=== PATIENT | female | born 1940 | race Caucasian/White ===

== ENCOUNTER → 2017-06-13 | Outpatient (CLI) | payer MEDICARE, BC ==
[~2017-06-13] MED LIST: ASPI-630 PO; CARV12.52 PO; GADOBUTROL 7.5 MMOL/7.5 ML VIAL IV ONE; LOSA100T6 PO; METF500T4 PO; PRAV40TA2 PO; SITA100T PO
--- NOTE | 2017-06-13 11:03 | KCIC ---
MRI Brain with and without contrast History: Disorders of speech and language, progressing expressive aphasia Technique: Multiplanar, multi sequential pre and postcontrast MR imaging was performed of the brain. Contrast: 7 cc Gadavist Comparison: July 23, 2016 Findings: There is no evidence of recent infarct or cytotoxic edema. Ventricular size is stable. There is again mild generalized supratentorial involutional change. There is no significant hemosiderin deposition of the brain parenchyma. There is no significant midline shift, intraaxial mass effect, or focal abnormal extra-axial fluid collection. No new convincing focal signal abnormality is identified of the brain parenchyma, focus of increased FLAIR signal the right sonny believed to be artifactual as not confirmed on T2 sequence. There is no nodular parenchymal or leptomeningeal enhancement. There is preservation of the major intracranial flow-voids at the skull base. The cerebellar tonsils are normal in location. There is no significant abnormality of the pineal gland or pituitary gland. There has been lens surgery bilaterally. There is likely mucus retention cyst left maxillary sinus 1 cm in size. There is patchy very mild ethmoid air cell mucosal thickening. There is again minimal fluid of the right mastoid air cells. Paranasal sinuses are overall aerated. There is preserved marrow signal of the clivus. Impression: 1. There is no new significant intracranial abnormality. There is again mild generalized supratentorial involutional change. Electronically signed by: Tushar Miller MD (06/13/2017 10:59 AM) [facility]
== END | disposition home or self-care (01) ==
LOC: KCIC MRI 08:04
PROVIDERS: ATTEND Psychiatry & Neurology Neurology
DX: R47.01 Aphasia (principal)
CPT/HCPCS: 70553; 82565; A9585

== ENCOUNTER 2019-04-01 11:03 | Emergency (ER) | payer MEDICARE, BC ==
[~2019-04-01] VITALS: Ht 162.6 cm; Wt 90.7 kg
[2019-04-01 11:03] VITALS: BP 161/58
[~2019-04-01 11:03] MED LIST changes: +CARV12.511 PO; -CARV12.52 PO; -GADOBUTROL 7.5 MMOL/7.5 ML VIAL IV ONE; +LOSA100T14 PO; -LOSA100T6 PO; +METF500T16 PO; -METF500T4 PO
[2019-04-01 11:28] LABS: BILIRUBIN,URINE NEGATIVE (NEG); CLARITY,URINE CLEAR; COLOR,URINE YELLOW; NITRITE,URINE POSITIVE (NEG); PH,URINE 5.5; PROTEIN,URINE NEGATIVE (NEG-TRACE); UROBILINOGEN,URINE 0.2 mg/dL (0.2 mg/dL)
[2019-04-01 11:41] LABS: BACTERIA,URINE MANY /HPF (0-FEW)
--- NOTE | 2019-04-01 11:53 | RAD ---
Examination: 2 views of the right hip with frontal view the pelvis, 3 views of the right knee and frontal view of the chest HISTORY: History of fall COMPARISON: None available. FINDINGS: CHEST: The cardiomediastinal silhouette grossly appears unremarkable. There is no acute infiltrate or visualized pneumothorax. Right knee: Severe joint space loss identified in the medial, lateral, patellofemoral compartments with moderate size osteophyte formation likely severe tricompartmental degenerative changes. There is no acute fracture or dislocation identified. Right hip: The right femoral head is within the acetabulum. There is no acute fracture or dislocation identified. IMPRESSION: 1. No acute osseous findings. 2. No acute cardiopulmonary findings. Electronically signed by: Devonte Medrano MD (04/01/2019 11:50 AM) [facility]
[2019-04-01] MEDS ORDERED: CEPH-264 PO (12:19)
--- NOTE | 2019-04-01 12:19 | PHYS DOC ---
Past Medical History Past Medical History: Diabetes-Type II, Hypertension, Other Additional Past Medical Histor: primary progressive aphasia Past Surgical History: Hysterectomy Alcohol Use: None Drug Use: None Adult General Chief Complaint Chief Complaint: MECHANICAL FALL HPI HPI Patient is a 78 year old female with history of expressive aphasia who brought in by EMS because of a fall and injury to lower extremity. Patient lives at home by herself and usually uses a walker care for ambulation. Patient had an unwitnessed fall and complaining of right lower extremity pain. Patient denies head injury and loss of consciousness Review of Systems Review of Systems Constitutional: Denies fever or chills [] Eyes: Denies change in visual acuity, redness, or eye pain [] HENT: Denies nasal congestion or sore throat [] Respiratory: Denies cough or shortness of breath [] Cardiovascular: No additional information not addressed in HPI [] GI: Denies abdominal pain, nausea, vomiting, bloody stools or diarrhea [] : Denies dysuria or hematuria [] Musculoskeletal: Denies back pain, reports joint pain [] Integument: Denies rash or skin lesions [] Neurologic: Denies headache, focal weakness or sensory changes [] Endocrine: Denies polyuria or polydipsia [] All other systems were reviewed and found to be within normal limits, except as documented in this note. Allergies Allergies Allergies Coded Allergies Type Severity Reaction Last Updated Verified No Known Drug Allergies 04/09/15 No Physical Exam Physical Exam Constitutional: Well nourished, mild distress, non-toxic appearance.stuttering speech [] HENT: Normocephalic, atraumatic. Eyes: PERRLA, EOMI, conjunctiva normal, no discharge. [] Neck: Normal range of motion, no tenderness, supple, no stridor. [] Cardiovascular:Heart rate regular rhythm, no murmur [] Lungs & Thorax: Bilateral breath sounds clear to auscultation [] Abdomen: Bowel sounds normal, soft, no tenderness, no masses, no pulsatile masses. [] Skin: Warm, dry, no erythema, no rash. [] Back: No tenderness, no CVA tenderness. [] Extremities: No tenderness, no cyanosis, no clubbing, ROM intact, no edema. [] Neurologic: Alert and oriented X 2, normal motor function, normal sensory function, no focal deficits noted. [] Current Patient Data Vital Signs Vital Signs Date Time Temp Pulse Resp B/P (MAP) Pulse Ox O2 Delivery O2 Flow Rate FiO2 04/01/19 11:03 98.2 64 17 161/58 (92) 95 Room Air 98.2 Lab Values Laboratory Tests Test 04/01/19 11:20 Urine Collection Type Unknown Urine Color Yellow Urine Clarity Clear Urine pH 5.5 Urine Specific [place] 1.020 Urine Protein Negative mg/dL (NEG-TRACE) Urine Glucose (UA) Negative mg/dL (NEG) Urine Ketones (Stick) Trace mg/dL (NEG) Urine Blood Small (NEG) Urine Nitrite Positive (NEG) Urine Bilirubin Negative (NEG) Urine Urobilinogen Dipstick 0.2 mg/dL (0.2 mg/dL) Urine Leukocyte Esterase Moderate (NEG) Urine RBC 3-5 /HPF (0-2) Urine WBC 11-20 /HPF (0-4) Urine Bacteria Many /HPF (0-FEW) EKG EKG [] Radiology/Procedures Radiology/Procedures [][facility] [address] [place], [place] [id number] IMAGING REPORT Signed PATIENT: VICK GROSS ACCOUNT: [id number] : 1940 LOCATION: ER AGE: 78 SEX: F EXAM STATUS: REG ER ORD. PHYSICIAN: JAYASHREE STEPHENSON MD REASON: fall PROCEDURE: PORTABLE CHEST 1V Examination: 2 views of the right hip with frontal view the pelvis, 3 views of the right knee and frontal view of the chest HISTORY: History of fall COMPARISON: None available. FINDINGS: CHEST: The cardiomediastinal silhouette grossly appears unremarkable. There is no acute infiltrate or visualized pneumothorax. Right knee: Severe joint space loss identified in the medial, lateral, patellofemoral compartments with moderate size osteophyte formation likely severe tricompartmental degenerative changes. There is no acute fracture or dislocation identified. Right hip: The right femoral head is within the acetabulum. There is no acute fracture or dislocation identified. IMPRESSION: 1. No acute osseous findings. 2. No acute cardiopulmonary findings. Electronically signed by: Devonte Medrano MD (04/01/2019 11:50 AM) [facility] DICTATED and SIGNED BY: DEVONTE MEDRANO MD DATE: 04/01/19 1150 Course & Med Decision Making Course & Med Decision Making Pertinent Labs and Imaging studies reviewed. (See chart for details) Evaluation of patient in ER showed 78-year-old male patient with a fall at home and lower extremity with unremarkable physical exam and x-ray. Patient had the smell of urine and UA showed UTI without hypotension, confusion, fever or tachycardia. Patient ambulated without problem. Patient's mother was advised regarding prevention of fall and possible change of living from by herself with somebody else. Dragon Disclaimer Dragon Disclaimer This electronic medical record was generated, in whole or in part, using a voice recognition dictation system. Departure Departure Impression: Primary Impression: Fall at home Additional Impressions: Contusion of right knee Urinary tract infection Disposition: HOME, SELF-CARE (at 2017) Condition: IMPROVED Referrals: DARA JANE MD (PCP) Patient Instructions: Contusion, Fall Prevention and Home Safety, Urinary Tract Infection Additional Instructions: Drink plenty of liquids Follow-up with your primary care physician in 3-5 days Return to ER if not getting better Apply ice on the affected area Scripts Cephalexin (KEFLEX) 500 Mg Capsule 2 CAP PO Q12HR, #28 CAP Prov: JAYASHREE STEPHENSON MD 04/01/19 Problem Qualifiers Primary Impression: Fall at home Encounter type: initial encounter Qualified Codes: W19.XXXA - Unspecified fall, initial encounter; Y92.009 - Unspecified place in unspecified non- institutional (private) residence as the place of occurrence of the external cause Additional Impressions: Contusion of right knee Encounter type: subsequent encounter Qualified Codes: S80.01XD - Contusion of right knee, subsequent encounter Urinary tract infection Urinary tract infection type: site unspecified Hematuria presence: without hematuria Qualified Codes: N39.0 - Urinary tract infection, site not specified JAYASHREE STEPHENSON MD Apr 01, 2019 12:19
--- NOTE | 2019-04-01 13:04 | NUR ---
AMBULATED WITH A STEADY GATE. STRUGGLED TO PUT WEIGHT ON RIGHT KNEE.
== END 2019-04-01 13:05 | disposition home or self-care (01) ==
LOC: ER 11:03
DX: S80.01XA Contusion of right knee, initial encounter (principal); N39.0 Urinary tract infection, site not specified; M25.551 Pain in right hip; I10 Essential (primary) hypertension; E11.9 Type 2 diabetes mellitus without complications; Z90.710 Acquired absence of both cervix and uterus; W18.39XA Other fall on same level, initial encounter; Y93.89 Activity, other specified; Y92.098 Other place in other non-institutional residence as the place of occurrence of the external cause; Y99.8 Other external cause status
CPT/HCPCS: 71045; 73502; 73562; 81001; 87086; 99285; P9612

== ENCOUNTER 2019-04-28 12:34 | Inpatient (IN) | payer MEDICARE, BC ==
[~2019-04-28] VITALS: Ht 152.4 cm; Wt 69.9 kg
[~2019-04-28 12:34] MED LIST changes: +CEPH-264 PO
[2019-04-28] MEDS ORDERED: IV NORMAL SALINE 1000ML BAG 1,000 ML IV ONE ×2 (13:00→14:15)
--- NOTE | 2019-04-28 13:22 | PHYS DOC ---
Past Medical History Past Medical History: Diabetes-Type II, Hypertension, Other Additional Past Medical Histor: primary progressive aphasia, [place], CARDIAC STENTS Past Surgical History: Hysterectomy Alcohol Use: None Drug Use: None Adult General Chief Complaint Chief Complaint: MECHANICAL FALL HPI HPI Patient is a 78 year old female with history of diabetes type 2, hypertension, aphasia, [place], who presents to the ED today to be evaluated for multiple falls and UTIs. Patient is in the ED with this daughter who is doing the speaking. She states she has been found on the floor at home twice in the last 2 days, patient resides at home by herself. Daughter also states patient appears slightly co nfused and believes patient could have a UTI. She states the last time patient had a UTI she was on Cipro which she completed a couple days ago. Patient denies any complaints. She appears alert and oriented �2, daughter states she was complaining of right knee pain but she arrives in the ED and ambulated from the wheelchair to the bed. Review of Systems Review of Systems Constitutional: Denies fever or chills [] Eyes: Denies change in visual acuity, redness, or eye pain [] HENT: Denies nasal congestion or sore throat [] Respiratory: Denies cough or shortness of breath [] Cardiovascular: No additional information not addressed in HPI [] GI: Denies abdominal pain, nausea, vomiting, bloody stools or diarrhea [] : Reports possible UTI, denies hematuria [] Musculoskeletal: Denies back pain or joint pain [] Integument: Denies rash or skin lesions [] Neurologic: Reports confusion. He is right knee pain. Denies headache, focal weakness or sensory changes [] All other systems were reviewed and found to be within normal limits, except as documented in this note. Current Medications Current Medications Current Medications Medications (Trade) Dose Ordered Sig/Fredo Start Time Stop Time Status Last Admin Dose Admin Sodium Chloride 1,000 ml @ 1,000 mls/hr 1X ONCE 04/28/19 13:00 04/28/19 13:59 DC 04/28/19 13:50 1,000 MLS/HR Allergies Allergies Allergies Coded Allergies Type Severity Reaction Last Updated Verified No Known Drug Allergies 04/09/15 No Physical Exam Physical Exam Constitutional: Well developed, well nourished, no acute distress, non-toxic appearance. [] HENT: Normocephalic, atraumatic, bilateral external ears normal, oropharynx moist, no oral exudates, nose normal. [] Eyes: PERRLA, EOMI, conjunctiva normal, no discharge. [] Neck: Normal range of motion, no tenderness, supple, no stridor. [] Cardiovascular:Heart rate regular rhythm, no murmur [] Lungs & Thorax: Bilateral breath sounds clear to auscultation [] Abdomen: Bowel sounds normal, soft, no tenderness, no masses, no pulsatile masses. [] Skin: Warm, dry, no erythema, no rash. [] Back: No tenderness, no CVA tenderness. [] Extremities: No tenderness, no cyanosis, no clubbing, ROM intact, no edema. [] Neurologic: Alert and oriented X 2, normal motor function, normal sensory function, no focal deficits noted. Cranial nerves II through XII intact. Psychologic: Affect normal, judgement normal, mood normal. [] Current Patient Data Vital Signs Vital Signs Date Time Temp Pulse Resp B/P (MAP) Pulse Ox O2 Delivery O2 Flow Rate FiO2 04/28/19 12:52 97.6 58 16 142/60 (87) 94 Room Air 97.6 Lab Values Laboratory Tests Test 04/28/19 13:07 04/28/19 13:24 Urine Collection Type U cath Urine Color Yellow Urine Clarity Clear Urine pH 5.5 Urine Specific [place] 1.015 Urine Protein Negative mg/dL (NEG-TRACE) Urine Glucose (UA) Negative mg/dL (NEG) Urine Ketones (Stick) Trace mg/dL (NEG) Urine Blood Negative (NEG) Urine Nitrite Negative (NEG) Urine Bilirubin Negative (NEG) Urine Urobilinogen Dipstick 0.2 mg/dL (0.2 mg/dL) Urine Leukocyte Esterase Negative (NEG) Urine RBC 0 /HPF (0-2) Urine WBC 0 /HPF (0-4) Urine Bacteria 0 /HPF (0-FEW) White Blood Count 7.6 x10^3/uL (4.0-11.0) Red Blood Count 4.06 x10^6/uL (3.50-5.40) Hemoglobin 12.1 g/dL (12.0-15.5) Hematocrit 35.2 % (36.0-47.0) L Mean Corpuscular Volume 87 fL (79-100) Mean Corpuscular Hemoglobin 30 pg (25-35) Mean Corpuscular Hemoglobin Concent 34 g/dL (31-37) Red Cell Distribution Width 14.1 % (11.5-14.5) Platelet Count 241 x10^3/uL (140-400) Neutrophils (%) (Auto) 63 % (31-73) Lymphocytes (%) (Auto) 27 % (24-48) Monocytes (%) (Auto) 8 % (0-9) Eosinophils (%) (Auto) 2 % (0-3) Basophils (%) (Auto) 1 % (0-3) Neutrophils # (Auto) 4.8 x10^3/uL (1.8-7.7) Lymphocytes # (Auto) 2.0 x10^3/uL (1.0-4.8) Monocytes # (Auto) 0.6 x10^3/uL (0.0-1.1) Eosinophils # (Auto) 0.1 x10^3/uL (0.0-0.7) Basophils # (Auto) 0.1 x10^3/uL (0.0-0.2) Sodium Level 141 mmol/L (136-145) Potassium Level 3.9 mmol/L (3.5-5.1) Chloride Level 105 mmol/L (98-107) Carbon Dioxide Level 25 mmol/L (21-32) Anion Gap 11 (6-14) Blood Urea Nitrogen 17 mg/dL (7-20) Creatinine 0.9 mg/dL (0.6-1.0) Estimated GFR (Cockcroft-Gault) 60.2 BUN/Creatinine Ratio 19 (6-20) Glucose Level 111 mg/dL (70-99) H Calcium Level 9.1 mg/dL (8.5-10.1) Magnesium Level 1.5 mg/dL (1.8-2.4) L Total Bilirubin 1.1 mg/dL (0.2-1.0) H Aspartate Amino Transferase (AST) 15 U/L (15-37) Alanine Aminotransferase (ALT) 16 U/L (14-59) Alkaline Phosphatase 49 U/L (46-116) Troponin I Quantitative < 0.017 ng/mL (0.000-0.055) Total Protein 6.7 g/dL (6.4-8.2) Albumin 3.8 g/dL (3.4-5.0) Albumin/Globulin Ratio 1.3 (1.0-1.7) Laboratory Tests 04/28/19 13:24 Laboratory Tests 04/28/19 13:24 EKG EKG [address] Mendoza sinus rhythm HR 55 no STEMI Radiology/Procedures Radiology/Procedures []PROCEDURE: PORTABLE CHEST 1V PORTABLE CHEST 1V Clinical Indication: Fall Comparison: AP chest April 01, 2019. Findings: Atherosclerotic aortic arch. The cardiomediastinal silhouette is normal. Lungs are clear. There is no pneumothorax. No pleural effusion is appreciated. No acute bone abnormality. Degenerative endplate spurring of the thoracic spine. IMPRESSION: No acute cardiopulmonary process. Electronically signed by: Raymundo Suazo MD (04/28/2019 1:48 PM) [facility] DICTATED and SIGNED BY: RAYMUNDO SUAZO MD DATE: 04/28/19 5198 PROCEDURE: CT HEAD WO CONTRAST PQRS Compliance Statement: One or more of the following individualized dose reduction techniques were utilized for this examination: 1. Automated exposure control 2. Adjustment of the mA and/or kV according to patient size 3. Use of iterative reconstruction technique CT HEAD WITHOUT CONTRAST History: Altered mental status, fall. Comparison: MR brain with and without contrast June 13, 2017. Technique: Axial images are obtained of the head from the skull base through the vertex without IV contrast. Findings: No mass-effect, midline shift, extra-axial fluid collection, hemorrhage, or obvious acute infarction is identified. Basilar cisterns are patent. The ventricles and sulci are prominent, consistent with age-related cerebral atrophy. There is supratentorial white matter hypoattenuation. This is a nonspecific finding but is commonly due to chronic small vessel ischemic disease. Bone windows demonstrate no acute calvarial abnormality. The visualized paranasal sinuses are clear. Mastoid air cells are well aerated. IMPRESSION: No acute intracranial abnormality. Electronically signed by: Raymundo Suazo MD (04/28/2019 1:38 PM) [facility] DICTATED and SIGNED BY: RAYMUNDO SUAZO MD DATE: 04/28/19 1337 PROCEDURE: KNEE RIGHT 3V KNEE RIGHT 3V Clinical Indication: Fall Comparison: Right knee, 3 views, April 01, 2019. Findings: Tricompartmental marginal osteophytes. There is joint space narrowing, most advanced in the lateral compartment. The mineralization is normal. No acute fracture. Patella in anatomic position. There is no joint effusion. No soft tissue swelling is seen. IMPRESSION: No acute fracture. Electronically signed by: Raymundo Suazo MD (04/28/2019 1:54 PM) [facility] DICTATED and SIGNED BY: RAYMUNDO SUAZO MD DATE: 04/28/19 1354 Course & Med Decision Making Course & Med Decision Making Pertinent Labs and Imaging studies reviewed. (See chart for details) This is a 6-year-old female patient being brought to the ED today by the daughter with complaints of frequent falls, right knee pain, confusion and possible UTI. Patient was treated for UTI couple days ago with Cipro which she completed. CT of the head, chest x-ray, right knee x-rays interpreted by radiologist are negative for any acute findings. Urine analysis is negative for infection, CBC with a normal WBC, normal hemoglobin and hematocrit, CMP with magnesium of 1.5- Ordered IV magnesium, bilirubin 1.1. Urine was noted for trace amount of ketones. Patient was started on IV fluids. [address] Bolden who accepted patient for admission. Dragon Disclaimer Dragon Disclaimer This electronic medical record was generated, in whole or in part, using a voice recognition dictation system. Departure Departure Impression: Primary Impression: Altered mental status Additional Impressions: Frequent falls Right knee pain Disposition: ADMITTED INPATIENT Condition: STABLE Referrals: DARA JANE MD (PCP) Problem Qualifiers Primary Impression: Altered mental status Altered mental status type: unspecified Qualified Codes: R41.82 - Altered mental status, unspecified Additional Impressions: Right knee pain Chronicity: acute Qualified Codes: M25.561 - Pain in right knee RICKFANNYFRANSISCO Hurtado [employer] Apr 28, 2019 13:21
[2019-04-28 13:27] LABS: BILIRUBIN,URINE NEGATIVE (NEG); CLARITY,URINE CLEAR; COLOR,URINE YELLOW; NITRITE,URINE NEGATIVE (NEG); PH,URINE 5.5; PROTEIN,URINE NEGATIVE (NEG-TRACE); UROBILINOGEN,URINE 0.2 mg/dL (0.2 mg/dL)
--- NOTE | 2019-04-28 13:41 | RAD ---
RS Compliance Statement: One or more of the following individualized dose reduction techniques were utilized for this examination: 1. Automated exposure control 2. Adjustment of the mA and/or kV according to patient size 3. Use of iterative reconstruction technique CT HEAD WITHOUT CONTRAST History: Altered mental status, fall. Comparison: MR brain with and without contrast June 13, 2017. Technique: Axial images are obtained of the head from the skull base through the vertex without IV contrast. Findings: No mass-effect, midline shift, extra-axial fluid collection, hemorrhage, or obvious acute infarction is identified. Basilar cisterns are patent. The ventricles and sulci are prominent, consistent with age-related cerebral atrophy. There is supratentorial white matter hypoattenuation. This is a nonspecific finding but is commonly due to chronic small vessel ischemic disease. Bone windows demonstrate no acute calvarial abnormality. The visualized paranasal sinuses are clear. Mastoid air cells are well aerated. IMPRESSION: No acute intracranial abnormality. Electronically signed by: Raymundo Suazo MD (04/28/2019 1:38 PM) [facility]
[2019-04-28 13:49] LABS: BASO # 0.1 x10^3/uL (0.0-0.2); BASO % 1 % (0-3); EOS # 0.1 x10^3/uL (0.0-0.7); EOS % 2 % (0-3); HEMATOCRIT 35.2 % (36.0-47.0); HEMOGLOBIN 12.1 g/dL (12.0-15.5); LYMPH % 27 % (24-48); MEAN CORPUSCULAR HEMOGLOBIN 30 pg (25-35); MEAN CORPUSCULAR HGB CONC 34 g/dL (31-37); MEAN CORPUSCULAR VOLUME 87 fL (79-100); MONO # 0.6 x10^3/uL (0.0-1.1); MONO % 8 % (0-9); NEUT # 4.8 x10^3/uL (1.8-7.7); NEUT % 63 % (31-73); PLATELET COUNT 241 x10^3/uL (140-400); RED BLOOD COUNT 4.06 x10^6/uL (3.50-5.40); RED CELL DISTRIBUTION WIDTH 14.1 % (11.5-14.5); WHITE BLOOD COUNT 7.6 x10^3/uL (4.0-11.0)
[2019-04-28 13:51] LABS: BACTERIA,URINE 0 /HPF (0-FEW); RBC,URINE 0 /HPF (0-2); WBC,URINE 0 /HPF (0-4)
--- NOTE | 2019-04-28 13:51 | RAD ---
PORTABLE CHEST 1V Clinical Indication: Fall Comparison: AP chest April 01, 2019. Findings: Atherosclerotic aortic arch. The cardiomediastinal silhouette is normal. Lungs are clear. There is no pneumothorax. No pleural effusion is appreciated. No acute bone abnormality. Degenerative endplate spurring of the thoracic spine. IMPRESSION: No acute cardiopulmonary process. Electronically signed by: Raymundo Suazo MD (04/28/2019 1:48 PM) [facility]
[2019-04-28 13:52] LABS: CALCIUM 9.1 mg/dL (8.5-10.1); CREATININE 0.9 mg/dL (0.6-1.0); GFR 60.2; POTASSIUM 3.9 mmol/L (3.5-5.1)
[2019-04-28 13:57] LABS: ALBUMIN 3.8 g/dL (3.4-5.0); ALBUMIN/GLOBULIN RATIO 1.3 (1.0-1.7); MAGNESIUM 1.5 mg/dL (1.8-2.4); TOTAL BILIRUBIN 1.1 mg/dL (0.2-1.0); TOTAL PROTEIN 6.7 g/dL (6.4-8.2)
--- NOTE | 2019-04-28 13:57 | RAD ---
KNEE RIGHT 3V Clinical Indication: Fall Comparison: Right knee, 3 views, April 01, 2019. Findings: Tricompartmental marginal osteophytes. There is joint space narrowing, most advanced in the lateral compartment. The mineralization is normal. No acute fracture. Patella in anatomic position. There is no joint effusion. No soft tissue swelling is seen. IMPRESSION: No acute fracture. Electronically signed by: Raymundo Suazo MD (04/28/2019 1:54 PM) [facility]
[2019-04-28] MEDS ORDERED: MAGNESIUM SULFATE 1GM 100 ML IV ONE (14:15)
[2019-04-28] MEDS ORDERED: ONDANSETRON PF 4 MG/2 ML VIAL. IV PRN (14:15)
[2019-04-28] MEDS ORDERED: ACETAMINOPHEN 325 MG TABLET. PO PRN (14:15)
[2019-04-28] MEDS ORDERED: DEXTROSE 50% 25 GM / 50ML DISP.SYRIN. IV PRN (15:45)
[2019-04-28] MEDS ORDERED: IV DEXTROSE 5% 250 ML BAG. IV PRN (15:45)
[2019-04-28 15:50] VITALS: BP 133/49
[2019-04-28] MEDS ORDERED: CA C1TAB62 PO (15:51)
[2019-04-28] MEDS ORDERED: CHOL10003 PO (15:51)
[2019-04-28] MEDS ORDERED: ESCI10TA2 PO (15:51)
[2019-04-28] MEDS ORDERED: CALC600T4 PO (15:51)
[2019-04-28] MEDS ORDERED: GLUC1TAB26 PO (15:51)
[2019-04-28] MEDS ORDERED: AMLO5TAB10 PO (15:51)
--- NOTE | 2019-04-28 15:54 | PDOC1 ---
History and Physical Date of Admission Date of Admission DATE: 04/28/19 TIME: 15:41 Identification/Chief Complaint Chief Complaint frequent falls Problems: (1) Frequent falls Source Source: Caregiver History of Present Illness History of Present Illness 78 year old female with history of diabetes type 2, hypertension, progressive aphasia who was brought in by daughter due to recurrent falls. patient fell last night and this AM. recently treated with rounds of abx for UTI where she was confused. now confusion has resolved. patient has primary progressive aphasia. no prior stroke. seen and dx by neurologist. patient lives alone and daughter lives an hr away. she was previously able to perform all her ADLs but now weak. patient recently completed abx a few days ago. patient has no complaints at the moment. Imaging in ED negative for fracture. CT head negative. Hospitalist called for admission and further evaluation. Past Medical History Past Medical History Primary Progressive Aphasia, DM, HTN, OA Past Surgical History Past Surgical History: No pertinent history Family History Family History reviewed and not pertinent Social History Smoke: No ALCOHOL: none Drugs: None Current Problem List Problem List Problems Medical Problems: (1) Altered mental status Status: Acute (2) Frequent falls Status: Acute (3) Right knee pain Status: Acute Current Medications Current Medications Current Medications Sodium Chloride 1,000 ml @ 1,000 mls/hr 1X ONCE IV Last administered on 04/28/19at 13:50; Start 04/28/19 at 13:00; Stop 04/28/19 at 13:59; Status DC Ondansetron HCl (Zofran) 4 mg PRN Q8HRS PRN IV NAUSEA/VOMITING; Start 04/28/19 at 14:15; Stop 04/29/19 at 14:14 Acetaminophen (Tylenol) 650 mg PRN Q4HRS PRN PO FEVER; Start 04/28/19 at 14:15; Stop 04/29/19 at 14:14 Magnesium Sulfate/ Dextrose 100 ml @ 100 mls/hr 1X ONCE IV Last administered on 04/28/19at 14:51; Start 04/28/19 at 14:15; Stop 04/28/19 at 15:14; Status DC Sodium Chloride 1,000 ml @ 75 mls/hr 1X ONCE IV ; Start 04/28/19 at 14:15; Stop 04/29/19 at 03:34 Active Scripts Active Keflex (Cephalexin) 500 Mg Capsule 2 Cap PO Q12HR Reported Aspirin 81 Mg Tab.chew 1 Tab PO DAILY Januvia (Sitagliptin Phosphate) 100 Mg Tablet 1 Tab PO DAILY Losartan Potassium 100 Mg Tablet 1 Tab PO DAILY Pravastatin Sodium 40 Mg Tablet 1 Tab PO QHS Metformin Hcl 500 Mg Tablet 1 Tab PO BID Carvedilol (Carvedilol) 12.5 Mg Tablet 1 Tab PO BID Allergies Allergies: Coded Allergies: No Known Drug Allergies (Unverified , 04/09/15) ROS Review of System CONSTITUTIONAL: No fever or chills EYES: No recent changes SKIN: No rash or itching CARDIOVASCULAR: No chest pain, syncope, palpitations, or edema RESPIRATORY: No SOB or cough GASTROINTESTINAL: No nausea, vomiting or abdominal pain NEUROLOGICAL: No headaches or weakness ENDOCRINE: No cold or heat intolerance GENITOURINARY: No urgency or frequency of urination MUSCULOSKELETAL: No back pain or joint pain LYMPHATICS: No enlarged lymph nodes PSYCHIATRIC: No anxiety or depression Physical Exam Physical Exam GENERAL: No apparent distress. Alert and oriented. HEENT: Head normocephalic, atraumatic. NECK: Supple LUNGS: Clear to auscultation. HEART: RRR, S1, S2 present, pulses intact ABDOMEN: Soft, positive bowel sounds. EXTREMITIES: No cyanosis or edema. NEUROLOGIC: Normal speech, normal tone PSYCHIATRIC: Normal affect, normal mood. SKIN: No ulceration. Vitals Vitals Vital Signs Date Time Temp Pulse Resp B/P (MAP) Pulse Ox O2 Delivery O2 Flow Rate FiO2 04/28/19 12:52 97.6 58 16 142/60 (87) 94 Room Air 97.6 Labs Labs Laboratory Tests Test 04/28/19 13:07 04/28/19 13:24 Urine Collection Type U cath Urine Color Yellow Urine Clarity Clear Urine pH 5.5 Urine Specific [place] 1.015 Urine Protein Negative mg/dL (NEG-TRACE) Urine Glucose (UA) Negative mg/dL (NEG) Urine Ketones (Stick) Trace mg/dL (NEG) Urine Blood Negative (NEG) Urine Nitrite Negative (NEG) Urine Bilirubin Negative (NEG) Urine Urobilinogen Dipstick 0.2 mg/dL (0.2 mg/dL) Urine Leukocyte Esterase Negative (NEG) Urine RBC 0 /HPF (0-2) Urine WBC 0 /HPF (0-4) Urine Bacteria 0 /HPF (0-FEW) White Blood Count 7.6 x10^3/uL (4.0-11.0) Red Blood Count 4.06 x10^6/uL (3.50-5.40) Hemoglobin 12.1 g/dL (12.0-15.5) Hematocrit 35.2 % (36.0-47.0) Mean Corpuscular Volume 87 fL (79-100) Mean Corpuscular Hemoglobin 30 pg (25-35) Mean Corpuscular Hemoglobin Concent 34 g/dL (31-37) Red Cell Distribution Width 14.1 % (11.5-14.5) Platelet Count 241 x10^3/uL (140-400) Neutrophils (%) (Auto) 63 % (31-73) Lymphocytes (%) (Auto) 27 % (24-48) Monocytes (%) (Auto) 8 % (0-9) Eosinophils (%) (Auto) 2 % (0-3) Basophils (%) (Auto) 1 % (0-3) Neutrophils # (Auto) 4.8 x10^3/uL (1.8-7.7) Lymphocytes # (Auto) 2.0 x10^3/uL (1.0-4.8) Monocytes # (Auto) 0.6 x10^3/uL (0.0-1.1) Eosinophils # (Auto) 0.1 x10^3/uL (0.0-0.7) Basophils # (Auto) 0.1 x10^3/uL (0.0-0.2) Sodium Level 141 mmol/L (136-145) Potassium Level 3.9 mmol/L (3.5-5.1) Chloride Level 105 mmol/L (98-107) Carbon Dioxide Level 25 mmol/L (21-32) Anion Gap 11 (6-14) Blood Urea Nitrogen 17 mg/dL (7-20) Creatinine 0.9 mg/dL (0.6-1.0) Estimated GFR (Cockcroft-Gault) 60.2 BUN/Creatinine Ratio 19 (6-20) Glucose Level 111 mg/dL (70-99) Calcium Level 9.1 mg/dL (8.5-10.1) Magnesium Level 1.5 mg/dL (1.8-2.4) Total Bilirubin 1.1 mg/dL (0.2-1.0) Aspartate Amino Transf (AST/SGOT) 15 U/L (15-37) Alanine Aminotransferase (ALT/SGPT) 16 U/L (14-59) Alkaline Phosphatase 49 U/L (46-116) Creatine Kinase 110 U/L (26-192) Creatine Kinase MB (Mass) 1.6 ng/mL (0.0-3.6) Creatine Kinase MB Relative Index 1.5 % (0-4) Troponin I Quantitative < 0.017 ng/mL (0.000-0.055) LU-Wuv-D-Type Natriuretic Peptide 289 pg/mL (0-449) Total Protein 6.7 g/dL (6.4-8.2) Albumin 3.8 g/dL (3.4-5.0) Albumin/Globulin Ratio 1.3 (1.0-1.7) Thyroid Stimulating Hormone (TSH) 2.494 uIU/mL (0.358-3.74) Laboratory Tests Test 04/28/19 13:07 04/28/19 13:24 Urine Collection Type U cath Urine Color Yellow Urine Clarity Clear Urine pH 5.5 Urine Specific [place] 1.015 Urine Protein Negative mg/dL (NEG-TRACE) Urine Glucose (UA) Negative mg/dL (NEG) Urine Ketones (Stick) Trace mg/dL (NEG) Urine Blood Negative (NEG) Urine Nitrite Negative (NEG) Urine Bilirubin Negative (NEG) Urine Urobilinogen Dipstick 0.2 mg/dL (0.2 mg/dL) Urine Leukocyte Esterase Negative (NEG) Urine RBC 0 /HPF (0-2) Urine WBC 0 /HPF (0-4) Urine Bacteria 0 /HPF (0-FEW) White Blood Count 7.6 x10^3/uL (4.0-11.0) Red Blood Count 4.06 x10^6/uL (3.50-5.40) Hemoglobin 12.1 g/dL (12.0-15.5) Hematocrit 35.2 % (36.0-47.0) Mean Corpuscular Volume 87 fL (79-100) Mean Corpuscular Hemoglobin 30 pg (25-35) Mean Corpuscular Hemoglobin Concent 34 g/dL (31-37) Red Cell Distribution Width 14.1 % (11.5-14.5) Platelet Count 241 x10^3/uL (140-400) Neutrophils (%) (Auto) 63 % (31-73) Lymphocytes (%) (Auto) 27 % (24-48) Monocytes (%) (Auto) 8 % (0-9) Eosinophils (%) (Auto) 2 % (0-3) Basophils (%) (Auto) 1 % (0-3) Neutrophils # (Auto) 4.8 x10^3/uL (1.8-7.7) Lymphocytes # (Auto) 2.0 x10^3/uL (1.0-4.8) Monocytes # (Auto) 0.6 x10^3/uL (0.0-1.1) Eosinophils # (Auto) 0.1 x10^3/uL (0.0-0.7) Basophils # (Auto) 0.1 x10^3/uL (0.0-0.2) Sodium Level 141 mmol/L (136-145) Potassium Level 3.9 mmol/L (3.5-5.1) Chloride Level 105 mmol/L (98-107) Carbon Dioxide Level 25 mmol/L (21-32) Anion Gap 11 (6-14) Blood Urea Nitrogen 17 mg/dL (7-20) Creatinine 0.9 mg/dL (0.6-1.0) Estimated GFR (Cockcroft-Gault) 60.2 BUN/Creatinine Ratio 19 (6-20) Glucose Level 111 mg/dL (70-99) Calcium Level 9.1 mg/dL (8.5-10.1) Magnesium Level 1.5 mg/dL (1.8-2.4) Total Bilirubin 1.1 mg/dL (0.2-1.0) Aspartate Amino Transf (AST/SGOT) 15 U/L (15-37) Alanine Aminotransferase (ALT/SGPT) 16 U/L (14-59) Alkaline Phosphatase 49 U/L (46-116) Creatine Kinase 110 U/L (26-192) Creatine Kinase MB (Mass) 1.6 ng/mL (0.0-3.6) Creatine Kinase MB Relative Index 1.5 % (0-4) Troponin I Quantitative < 0.017 ng/mL (0.000-0.055) RF-Fmv-T-Type Natriuretic Peptide 289 pg/mL (0-449) Total Protein 6.7 g/dL (6.4-8.2) Albumin 3.8 g/dL (3.4-5.0) Albumin/Globulin Ratio 1.3 (1.0-1.7) Thyroid Stimulating Hormone (TSH) 2.494 uIU/mL (0.358-3.74) VTE Prophylaxis Ordered VTE Prophylaxis Devices: Yes VTE Pharmacological Prophylaxi: Yes Assessment/Plan Assessment/Plan ASSESSMENT Frequent Falls Primary Progressive Aphasia HTN Hx of recently Treated UTI Hx of Recent Encephalopathy secondary to UTI, resolved PLAN: admit to medical floor bed PT consult MRI brain continue home BP meds dvt ppx: heparin sw consult for placement RORY MAYER MD Apr 28, 2019 15:54
--- NOTE | 2019-04-28 16:45 | EKG ---
[facility] [address] [place] [id number] Test Date: 2019-04-28 Test Time: 12:56:15 Pat Name: VICK GROSS Department: Room: Gender: F Connie Scratcher: : 1940 Requested By: FRANSISCO RAZA Order Number: [id number] Reading MD: Measurements Intervals [place] Rate: 55 P: 32 ND: 186 QRS: 25 QRSD: 86 T: 11 QT: 410 QTc: 394 Interpretive Statements SINUS RHYTHM QRS(T) CONTOUR ABNORMALITY CONSIDER ANTEROSEPTAL MYOCARDIAL DAMAGE POSSIBLY ABNORMAL ECG RI6.01 Unconfirmed report No previous ECG available for comparison
[2019-04-28] MEDS: INSULIN LISPRO 300 UNITS/3 ML INSULN.PEN. SQ SCH (17:00)
[2019-04-28] MEDS: CARVEDILOL 12.5 MG TABLET. PO SCH (17:13)
[2019-04-28] MEDS: metFORMIN 500 MG TABLET PO SCH (17:13)
[2019-04-28 19:00] VITALS: BP 129/54
[2019-04-28] MEDS: ATORVASTATIN CALCIUM 10 MG TABLET. PO SCH (21:25)
[2019-04-28] MEDS: HEPARIN for SUB-Q USE 5,000 UNIT/ML VIAL. SQ SCH (21:28)
[2019-04-28 23:05] VITALS: BP 107/44
[2019-04-29 03:05] VITALS: BP 128/39
[2019-04-29] MEDS: HEPARIN for SUB-Q USE 5,000 UNIT/ML VIAL. SQ SCH ×3 (05:44→20:43)
[2019-04-29 06:43] LABS: CALCIUM 8.4 mg/dL (8.5-10.1); GFR 53.3; POTASSIUM 3.7 mmol/L (3.5-5.1)
[2019-04-29 06:53] LABS: BASO # 0.1 x10^3/uL (0.0-0.2); BASO % 1 % (0-3); EOS # 0.2 x10^3/uL (0.0-0.7); EOS % 3 % (0-3); HEMATOCRIT 34.6 % (36.0-47.0); HEMOGLOBIN 11.9 g/dL (12.0-15.5); LYMPH # 2.3 x10^3/uL (1.0-4.8); LYMPH % 39 % (24-48); MEAN CORPUSCULAR HEMOGLOBIN 30 pg (25-35); MEAN CORPUSCULAR HGB CONC 34 g/dL (31-37); MEAN CORPUSCULAR VOLUME 87 fL (79-100); MONO # 0.5 x10^3/uL (0.0-1.1); MONO % 8 % (0-9); NEUT # 2.9 x10^3/uL (1.8-7.7); NEUT % 50 % (31-73); PLATELET COUNT 231 x10^3/uL (140-400); RED BLOOD COUNT 3.99 x10^6/uL (3.50-5.40); WHITE BLOOD COUNT 5.9 x10^3/uL (4.0-11.0)
[2019-04-29 07:00] VITALS: BP 102/26
--- NOTE | 2019-04-29 07:59 | PDOC ---
PROGRESS NOTES Chief Complaint Chief Complaint Frequent Falls Primary Progressive Aphasia HTN Anemia Toxic Encephalopathy secondary to UTI History of Present Illness History of Present Illness Ms Montez is an 78 yo F with history of diabetes type 2, hypertension, progressive aphasia who was brought in by daughter due to recurrent falls. patient fell night prio to admission. recently treated with rounds of abx for UTI where she was confused. now confusion has resolved. patient has primary progressive aphasia. no prior stroke. seen and dx by neurologist. patient lives alone and daughter lives an hr away. she was previously able to perform all her ADLs but now weak. patient recently completed abx a few days ago. Imaging in ED negative for fracture. CT head negative. CXR clear. Labs reveal mild anemia, Hb 11 and magnesium of 1.5 No overnight events. Answers yes to every question, but with further prompting may answer appropriately. Potassium low today. Mag replaced. Still unsteady on her feet. No SOB or CP Plan: PT/OT Labs Likely placement Vitals Vitals Vital Signs Date Time Temp Pulse Resp B/P (MAP) Pulse Ox O2 Delivery O2 Flow Rate FiO2 04/29/19 03:05 98.4 52 18 128/39 (68) 98 Room Air 98.4 Physical Exam General: Cooperative, No acute distress Heart: Regular rate, Normal S1, Normal S2 Lungs: Clear Abdomen: Normal bowel sounds, Soft Extremities: No clubbing, No cyanosis Skin: No rashes, No breakdown Labs LABS Laboratory Tests Test 04/28/19 13:07 04/28/19 13:24 04/28/19 17:21 04/28/19 20:21 Urine Collection Type U cath Urine Color Yellow Urine Clarity Clear Urine pH 5.5 Urine Specific Rugby 1.015 Urine Protein Negative mg/dL (NEG-TRACE) Urine Glucose (UA) Negative mg/dL (NEG) Urine Ketones (Stick) Trace mg/dL (NEG) Urine Blood Negative (NEG) Urine Nitrite Negative (NEG) Urine Bilirubin Negative (NEG) Urine Urobilinogen Dipstick 0.2 mg/dL (0.2 mg/dL) Urine Leukocyte Esterase Negative (NEG) Urine RBC 0 /HPF (0-2) Urine WBC 0 /HPF (0-4) Urine Bacteria 0 /HPF (0-FEW) White Blood Count 7.6 x10^3/uL (4.0-11.0) Red Blood Count 4.06 x10^6/uL (3.50-5.40) Hemoglobin 12.1 g/dL (12.0-15.5) Hematocrit 35.2 % (36.0-47.0) Mean Corpuscular Volume 87 fL (79-100) Mean Corpuscular Hemoglobin 30 pg (25-35) Mean Corpuscular Hemoglobin Concent 34 g/dL (31-37) Red Cell Distribution Width 14.1 % (11.5-14.5) Platelet Count 241 x10^3/uL (140-400) Neutrophils (%) (Auto) 63 % (31-73) Lymphocytes (%) (Auto) 27 % (24-48) Monocytes (%) (Auto) 8 % (0-9) Eosinophils (%) (Auto) 2 % (0-3) Basophils (%) (Auto) 1 % (0-3) Neutrophils # (Auto) 4.8 x10^3/uL (1.8-7.7) Lymphocytes # (Auto) 2.0 x10^3/uL (1.0-4.8) Monocytes # (Auto) 0.6 x10^3/uL (0.0-1.1) Eosinophils # (Auto) 0.1 x10^3/uL (0.0-0.7) Basophils # (Auto) 0.1 x10^3/uL (0.0-0.2) Sodium Level 141 mmol/L (136-145) Potassium Level 3.9 mmol/L (3.5-5.1) Chloride Level 105 mmol/L (98-107) Carbon Dioxide Level 25 mmol/L (21-32) Anion Gap 11 (6-14) Blood Urea Nitrogen 17 mg/dL (7-20) Creatinine 0.9 mg/dL (0.6-1.0) Estimated GFR (Cockcroft-Gault) 60.2 BUN/Creatinine Ratio 19 (6-20) Glucose Level 111 mg/dL (70-99) Calcium Level 9.1 mg/dL (8.5-10.1) Magnesium Level 1.5 mg/dL (1.8-2.4) Total Bilirubin 1.1 mg/dL (0.2-1.0) Aspartate Amino Transf (AST/SGOT) 15 U/L (15-37) Alanine Aminotransferase (ALT/SGPT) 16 U/L (14-59) Alkaline Phosphatase 49 U/L (46-116) Creatine Kinase 110 U/L (26-192) Creatine Kinase MB (Mass) 1.6 ng/mL (0.0-3.6) Creatine Kinase MB Relative Index 1.5 % (0-4) Troponin I Quantitative < 0.017 ng/mL (0.000-0.055) QF-Mfh-E-Type Natriuretic Peptide 289 pg/mL (0-449) Total Protein 6.7 g/dL (6.4-8.2) Albumin 3.8 g/dL (3.4-5.0) Albumin/Globulin Ratio 1.3 (1.0-1.7) Thyroid Stimulating Hormone (TSH) 2.494 uIU/mL (0.358-3.74) Glucose (Fingerstick) 95 mg/dL (70-99) 116 mg/dL (70-99) Test 04/29/19 05:25 04/29/19 07:48 White Blood Count 5.9 x10^3/uL (4.0-11.0) Red Blood Count 3.99 x10^6/uL (3.50-5.40) Hemoglobin 11.9 g/dL (12.0-15.5) Hematocrit 34.6 % (36.0-47.0) Mean Corpuscular Volume 87 fL (79-100) Mean Corpuscular Hemoglobin 30 pg (25-35) Mean Corpuscular Hemoglobin Concent 34 g/dL (31-37) Red Cell Distribution Width 14.0 % (11.5-14.5) Platelet Count 231 x10^3/uL (140-400) Neutrophils (%) (Auto) 50 % (31-73) Lymphocytes (%) (Auto) 39 % (24-48) Monocytes (%) (Auto) 8 % (0-9) Eosinophils (%) (Auto) 3 % (0-3) Basophils (%) (Auto) 1 % (0-3) Neutrophils # (Auto) 2.9 x10^3/uL (1.8-7.7) Lymphocytes # (Auto) 2.3 x10^3/uL (1.0-4.8) Monocytes # (Auto) 0.5 x10^3/uL (0.0-1.1) Eosinophils # (Auto) 0.2 x10^3/uL (0.0-0.7) Basophils # (Auto) 0.1 x10^3/uL (0.0-0.2) Sodium Level 146 mmol/L (136-145) Potassium Level 3.7 mmol/L (3.5-5.1) Chloride Level 109 mmol/L (98-107) Carbon Dioxide Level 27 mmol/L (21-32) Anion Gap 10 (6-14) Blood Urea Nitrogen 13 mg/dL (7-20) Creatinine 1.0 mg/dL (0.6-1.0) Estimated GFR (Cockcroft-Gault) 53.3 Glucose Level 94 mg/dL (70-99) Calcium Level 8.4 mg/dL (8.5-10.1) Glucose (Fingerstick) 94 mg/dL (70-99) Assessment and Plan Assessmemt and Plan Problems Medical Problems: (1) Altered mental status Status: Acute (2) Frequent falls Status: Acute (3) Right knee pain Status: Acute Comment Review of Relevant I have reviewed the following items marizol (where applicable) has been applied. Labs Laboratory Tests Test 04/28/19 13:07 04/28/19 13:24 04/28/19 17:21 04/28/19 20:21 Urine Collection Type U cath Urine Color Yellow Urine Clarity Clear Urine pH 5.5 Urine Specific Rugby 1.015 Urine Protein Negative mg/dL (NEG-TRACE) Urine Glucose (UA) Negative mg/dL (NEG) Urine Ketones (Stick) Trace mg/dL (NEG) Urine Blood Negative (NEG) Urine Nitrite Negative (NEG) Urine Bilirubin Negative (NEG) Urine Urobilinogen Dipstick 0.2 mg/dL (0.2 mg/dL) Urine Leukocyte Esterase Negative (NEG) Urine RBC 0 /HPF (0-2) Urine WBC 0 /HPF (0-4) Urine Bacteria 0 /HPF (0-FEW) White Blood Count 7.6 x10^3/uL (4.0-11.0) Red Blood Count 4.06 x10^6/uL (3.50-5.40) Hemoglobin 12.1 g/dL (12.0-15.5) Hematocrit 35.2 % (36.0-47.0) Mean Corpuscular Volume 87 fL (79-100) Mean Corpuscular Hemoglobin 30 pg (25-35) Mean Corpuscular Hemoglobin Concent 34 g/dL (31-37) Red Cell Distribution Width 14.1 % (11.5-14.5) Platelet Count 241 x10^3/uL (140-400) Neutrophils (%) (Auto) 63 % (31-73) Lymphocytes (%) (Auto) 27 % (24-48) Monocytes (%) (Auto) 8 % (0-9) Eosinophils (%) (Auto) 2 % (0-3) Basophils (%) (Auto) 1 % (0-3) Neutrophils # (Auto) 4.8 x10^3/uL (1.8-7.7) Lymphocytes # (Auto) 2.0 x10^3/uL (1.0-4.8) Monocytes # (Auto) 0.6 x10^3/uL (0.0-1.1) Eosinophils # (Auto) 0.1 x10^3/uL (0.0-0.7) Basophils # (Auto) 0.1 x10^3/uL (0.0-0.2) Sodium Level 141 mmol/L (136-145) Potassium Level 3.9 mmol/L (3.5-5.1) Chloride Level 105 mmol/L (98-107) Carbon Dioxide Level 25 mmol/L (21-32) Anion Gap 11 (6-14) Blood Urea Nitrogen 17 mg/dL (7-20) Creatinine 0.9 mg/dL (0.6-1.0) Estimated GFR (Cockcroft-Gault) 60.2 BUN/Creatinine Ratio 19 (6-20) Glucose Level 111 mg/dL (70-99) Calcium Level 9.1 mg/dL (8.5-10.1) Magnesium Level 1.5 mg/dL (1.8-2.4) Total Bilirubin 1.1 mg/dL (0.2-1.0) Aspartate Amino Transf (AST/SGOT) 15 U/L (15-37) Alanine Aminotransferase (ALT/SGPT) 16 U/L (14-59) Alkaline Phosphatase 49 U/L (46-116) Creatine Kinase 110 U/L (26-192) Creatine Kinase MB (Mass) 1.6 ng/mL (0.0-3.6) Creatine Kinase MB Relative Index 1.5 % (0-4) Troponin I Quantitative < 0.017 ng/mL (0.000-0.055) VR-Ofz-A-Type Natriuretic Peptide 289 pg/mL (0-449) Total Protein 6.7 g/dL (6.4-8.2) Albumin 3.8 g/dL (3.4-5.0) Albumin/Globulin Ratio 1.3 (1.0-1.7) Thyroid Stimulating Hormone (TSH) 2.494 uIU/mL (0.358-3.74) Glucose (Fingerstick) 95 mg/dL (70-99) 116 mg/dL (70-99) Test 04/29/19 05:25 04/29/19 07:48 White Blood Count 5.9 x10^3/uL (4.0-11.0) Red Blood Count 3.99 x10^6/uL (3.50-5.40) Hemoglobin 11.9 g/dL (12.0-15.5) Hematocrit 34.6 % (36.0-47.0) Mean Corpuscular Volume 87 fL (79-100) Mean Corpuscular Hemoglobin 30 pg (25-35) Mean Corpuscular Hemoglobin Concent 34 g/dL (31-37) Red Cell Distribution Width 14.0 % (11.5-14.5) Platelet Count 231 x10^3/uL (140-400) Neutrophils (%) (Auto) 50 % (31-73) Lymphocytes (%) (Auto) 39 % (24-48) Monocytes (%) (Auto) 8 % (0-9) Eosinophils (%) (Auto) 3 % (0-3) Basophils (%) (Auto) 1 % (0-3) Neutrophils # (Auto) 2.9 x10^3/uL (1.8-7.7) Lymphocytes # (Auto) 2.3 x10^3/uL (1.0-4.8) Monocytes # (Auto) 0.5 x10^3/uL (0.0-1.1) Eosinophils # (Auto) 0.2 x10^3/uL (0.0-0.7) Basophils # (Auto) 0.1 x10^3/uL (0.0-0.2) Sodium Level 146 mmol/L (136-145) Potassium Level 3.7 mmol/L (3.5-5.1) Chloride Level 109 mmol/L (98-107) Carbon Dioxide Level 27 mmol/L (21-32) Anion Gap 10 (6-14) Blood Urea Nitrogen 13 mg/dL (7-20) Creatinine 1.0 mg/dL (0.6-1.0) Estimated GFR (Cockcroft-Gault) 53.3 Glucose Level 94 mg/dL (70-99) Calcium Level 8.4 mg/dL (8.5-10.1) Glucose (Fingerstick) 94 mg/dL (70-99) Laboratory Tests Test 04/28/19 13:07 04/28/19 13:24 04/28/19 17:21 04/28/19 20:21 Urine Collection Type U cath Urine Color Yellow Urine Clarity Clear Urine pH 5.5 Urine Specific [place] 1.015 Urine Protein Negative mg/dL (NEG-TRACE) Urine Glucose (UA) Negative mg/dL (NEG) Urine Ketones (Stick) Trace mg/dL (NEG) Urine Blood Negative (NEG) Urine Nitrite Negative (NEG) Urine Bilirubin Negative (NEG) Urine Urobilinogen Dipstick 0.2 mg/dL (0.2 mg/dL) Urine Leukocyte Esterase Negative (NEG) Urine RBC 0 /HPF (0-2) Urine WBC 0 /HPF (0-4) Urine Bacteria 0 /HPF (0-FEW) White Blood Count 7.6 x10^3/uL (4.0-11.0) Red Blood Count 4.06 x10^6/uL (3.50-5.40) Hemoglobin 12.1 g/dL (12.0-15.5) Hematocrit 35.2 % (36.0-47.0) Mean Corpuscular Volume 87 fL (79-100) Mean Corpuscular Hemoglobin 30 pg (25-35) Mean Corpuscular Hemoglobin Concent 34 g/dL (31-37) Red Cell Distribution Width 14.1 % (11.5-14.5) Platelet Count 241 x10^3/uL (140-400) Neutrophils (%) (Auto) 63 % (31-73) Lymphocytes (%) (Auto) 27 % (24-48) Monocytes (%) (Auto) 8 % (0-9) Eosinophils (%) (Auto) 2 % (0-3) Basophils (%) (Auto) 1 % (0-3) Neutrophils # (Auto) 4.8 x10^3/uL (1.8-7.7) Lymphocytes # (Auto) 2.0 x10^3/uL (1.0-4.8) Monocytes # (Auto) 0.6 x10^3/uL (0.0-1.1) Eosinophils # (Auto) 0.1 x10^3/uL (0.0-0.7) Basophils # (Auto) 0.1 x10^3/uL (0.0-0.2) Sodium Level 141 mmol/L (136-145) Potassium Level 3.9 mmol/L (3.5-5.1) Chloride Level 105 mmol/L (98-107) Carbon Dioxide Level 25 mmol/L (21-32) Anion Gap 11 (6-14) Blood Urea Nitrogen 17 mg/dL (7-20) Creatinine 0.9 mg/dL (0.6-1.0) Estimated GFR (Cockcroft-Gault) 60.2 BUN/Creatinine Ratio 19 (6-20) Glucose Level 111 mg/dL (70-99) Calcium Level 9.1 mg/dL (8.5-10.1) Magnesium Level 1.5 mg/dL (1.8-2.4) Total Bilirubin 1.1 mg/dL (0.2-1.0) Aspartate Amino Transf (AST/SGOT) 15 U/L (15-37) Alanine Aminotransferase (ALT/SGPT) 16 U/L (14-59) Alkaline Phosphatase 49 U/L (46-116) Creatine Kinase 110 U/L (26-192) Creatine Kinase MB (Mass) 1.6 ng/mL (0.0-3.6) Creatine Kinase MB Relative Index 1.5 % (0-4) Troponin I Quantitative < 0.017 ng/mL (0.000-0.055) QL-Akm-Z-Type Natriuretic Peptide 289 pg/mL (0-449) Total Protein 6.7 g/dL (6.4-8.2) Albumin 3.8 g/dL (3.4-5.0) Albumin/Globulin Ratio 1.3 (1.0-1.7) Thyroid Stimulating Hormone (TSH) 2.494 uIU/mL (0.358-3.74) Glucose (Fingerstick) 95 mg/dL (70-99) 116 mg/dL (70-99) Test 04/29/19 05:25 04/29/19 07:48 White Blood Count 5.9 x10^3/uL (4.0-11.0) Red Blood Count 3.99 x10^6/uL (3.50-5.40) Hemoglobin 11.9 g/dL (12.0-15.5) Hematocrit 34.6 % (36.0-47.0) Mean Corpuscular Volume 87 fL (79-100) Mean Corpuscular Hemoglobin 30 pg (25-35) Mean Corpuscular Hemoglobin Concent 34 g/dL (31-37) Red Cell Distribution Width 14.0 % (11.5-14.5) Platelet Count 231 x10^3/uL (140-400) Neutrophils (%) (Auto) 50 % (31-73) Lymphocytes (%) (Auto) 39 % (24-48) Monocytes (%) (Auto) 8 % (0-9) Eosinophils (%) (Auto) 3 % (0-3) Basophils (%) (Auto) 1 % (0-3) Neutrophils # (Auto) 2.9 x10^3/uL (1.8-7.7) Lymphocytes # (Auto) 2.3 x10^3/uL (1.0-4.8) Monocytes # (Auto) 0.5 x10^3/uL (0.0-1.1) Eosinophils # (Auto) 0.2 x10^3/uL (0.0-0.7) Basophils # (Auto) 0.1 x10^3/uL (0.0-0.2) Sodium Level 146 mmol/L (136-145) Potassium Level 3.7 mmol/L (3.5-5.1) Chloride Level 109 mmol/L (98-107) Carbon Dioxide Level 27 mmol/L (21-32) Anion Gap 10 (6-14) Blood Urea Nitrogen 13 mg/dL (7-20) Creatinine 1.0 mg/dL (0.6-1.0) Estimated GFR (Cockcroft-Gault) 53.3 Glucose Level 94 mg/dL (70-99) Calcium Level 8.4 mg/dL (8.5-10.1) Glucose (Fingerstick) 94 mg/dL (70-99) Medications Current Medications Sodium Chloride 1,000 ml @ 1,000 mls/hr 1X ONCE IV Last administered on 04/28/19at 13:50; Start 04/28/19 at 13:00; Stop 04/28/19 at 13:59; Status DC Ondansetron HCl (Zofran) 4 mg PRN Q8HRS PRN IV NAUSEA/VOMITING; Start 04/28/19 at 14:15; Stop 04/29/19 at 14:14 Acetaminophen (Tylenol) 650 mg PRN Q4HRS PRN PO FEVER; Start 04/28/19 at 14:15; Stop 04/29/19 at 14:14 Magnesium Sulfate/ Dextrose 100 ml @ 100 mls/hr 1X ONCE IV Last administered on 04/28/19at 14:51; Start 04/28/19 at 14:15; Stop 04/28/19 at 15:14; Status DC Sodium Chloride 1,000 ml @ 75 mls/hr 1X ONCE IV Last administered on 04/28/19at 16:21; Start 04/28/19 at 14:15; Stop 04/29/19 at 03:34; Status DC Aspirin (Children'S Aspirin) 81 mg DAILY PO ; Start 04/29/19 at 09:00 Carvedilol (Coreg) 12.5 mg BIDWMEALS PO Last administered on 04/28/19at 17:13; Start 04/28/19 at 17:00 Metformin HCl (Glucophage) 500 mg BIDWMEALS PO Last administered on 04/28/19at 17:13; Start 04/28/19 at 17:00 Losartan Potassium (Cozaar) 100 mg DAILY PO ; Start 04/29/19 at 09:00 Atorvastatin Calcium (Lipitor) 10 mg QHS PO Last administered on 04/28/19at 21:28; Start 04/28/19 at 21:00 Linagliptin (Tradjenta) 5 mg DAILY PO ; Start 04/29/19 at 09:00 Insulin Human Lispro (HumaLOG) 0-5 UNITS TIDWMEALS SQ ; Start 04/28/19 at 17:00 Dextrose (Dextrose 50%-Water Syringe) 12.5 gm PRN Q15MIN PRN IV SEE COMMENTS; Start 04/28/19 at 15:45; Stop 04/28/19 at 15:48; Status DC Dextrose 250 ml PRN Q15MIN PRN IV SEE COMMENTS; Start 04/28/19 at 15:45 Heparin Sodium (Porcine) (Heparin Sodium) 5,000 unit Q8HRS SQ Last administered on 04/29/19at 05:44; Start 04/28/19 at 22:00 Active Scripts Active Reported Escitalopram Oxalate 10 Mg Tablet 10 Mg PO DAILY Vitamin D3 (Cholecalciferol (Vitamin D3)) 1,000 Unit Tablet 1,000 Unit PO DAILY Citracal Soft Chew (Ca Carbonate/Vitamin D3/Vit K) 1 Each Tab.chew 1 Each PO DAILY Calcium (Calcium Carbonate) 600 Mg Tablet 600 Mg PO DAILY Amlodipine Besylate 5 Mg Tablet 5 Mg PO DAILY Ouindetcbx-Cazlzbyapdu-Nyv Tab (Gluc/Mariano-Msm#2/C/D3/Power/Born) 1 Each Tablet 1 Each PO DAILY Aspirin 81 Mg Tab.chew 1 Tab PO DAILY Januvia (Sitagliptin Phosphate) 100 Mg Tablet 1 Tab PO DAILY Losartan Potassium 100 Mg Tablet 1 Tab PO DAILY Pravastatin Sodium 40 Mg Tablet 1 Tab PO QHS Metformin Hcl 500 Mg Tablet 1 Tab PO BID Carvedilol (Carvedilol) 12.5 Mg Tablet 1 Tab PO BID Vitals/I & O Vital Sign - Last 24 Hours 04/28/19 04/28/19 04/28/19 04/28/19 12:52 15:50 16:56 17:13 Temp 97.6 98.0 97.6 98.0 Pulse 58 58 58 Resp 16 17 B/P (MAP) 142/60 (87) 133/49 (77) 133/49 Pulse Ox 94 94 O2 Delivery Room Air Room Air Room Air 04/28/19 04/28/19 04/28/19 04/29/19 19:00 20:00 23:05 03:05 Temp 97.9 97.9 98.4 97.9 97.9 98.4 Pulse 53 51 52 Resp 20 20 18 B/P (MAP) 129/54 (79) 107/44 (65) 128/39 (68) Pulse Ox 93 93 98 O2 Delivery Room Air Room Air Room Air Room Air Intake and Output 04/28/19 04/28/19 04/29/19 14:59 22:59 06:59 Intake Total 1000 ml Balance 1000 ml MORRO ROSARIO MD Apr 29, 2019 07:59
[2019-04-29] MEDS: INSULIN LISPRO 300 UNITS/3 ML INSULN.PEN. SQ SCH ×3 (08:00→16:51)
[2019-04-29] MEDS: CARVEDILOL 12.5 MG TABLET. PO SCH (08:00)
[2019-04-29] MEDS: LOSARTAN POTASSIUM 50 MG TABLET. PO SCH (08:20)
[2019-04-29] MEDS: metFORMIN 500 MG TABLET PO SCH ×2 (08:20→16:50)
[2019-04-29] MEDS: LINAGLIPTIN 5 MG TABLET PO SCH (08:21)
[2019-04-29] MEDS: ASPIRIN CHEWABLE 81 MG TABLET. PO SCH (08:21)
[2019-04-29 11:00] VITALS: BP 129/68
[2019-04-29] MEDS ORDERED: POTASSIUM CHLORIDE 20 MEQ TABLET.ER. PO ONE (11:15)
[2019-04-29 15:00] VITALS: BP 120/55
[2019-04-29] MEDS: CARVEDILOL 3.125 MG TABLET. PO SCH (16:50)
[2019-04-29 19:00] VITALS: BP 130/51
[2019-04-29] MEDS: ATORVASTATIN CALCIUM 10 MG TABLET. PO SCH (20:41)
--- NOTE | 2019-04-29 20:50 | RAD ---
MRI of the brain without contrast 04/29/2019 Clinical History: Altered mental status. Technique: Unenhanced T1-weighted sagittal and axial, T2-weighted axial and coronal and FLAIR, gradient echo and diffusion-weighted axial images of the brain were obtained. Findings: Comparison is made to patient's MRI of the brain dated 06/13/2017. Additional comparison is made to patient's CT scan of the head dated 04/28/2019. Some of the images are degraded by patient motion. There is generalized parenchymal atrophy. Patchy and several small focal areas of increased signal intensity are seen within the periventricular and subcortical white matter of both cerebral hemispheres along with the sonny on the FLAIR and T2-weighted images consistent with areas of mild small vessel ischemic disease. These have not significantly changed. No acute parenchymal abnormality is seen. No extra-axial fluid collection is seen. There is no MRI evidence of acute ischemia/infarction. Mild mucosal thickening in seen scattered throughout the paranasal sinuses. There is a minimal left mastoid effusion. A small right mastoid effusion is seen. Normal flow voids are seen within the major vascular structures surrounding the brain parenchyma. Impression: No acute parenchymal abnormality is seen. Electronically signed by: Stefan Becker MD (04/29/2019 8:46 PM) [facility]
[2019-04-29 23:00] VITALS: BP 124/45
[2019-04-30 03:10] VITALS: BP 144/59
[2019-04-30 04:55] LABS: CALCIUM 8.4 mg/dL (8.5-10.1); CREATININE 0.9 mg/dL (0.6-1.0); GFR 60.2; MAGNESIUM 1.6 mg/dL (1.8-2.4); POTASSIUM 4.1 mmol/L (3.5-5.1)
[2019-04-30] MEDS: HEPARIN for SUB-Q USE 5,000 UNIT/ML VIAL. SQ SCH ×3 (05:35→21:22)
[2019-04-30 07:00] VITALS: BP 144/48
[2019-04-30] MEDS: INSULIN LISPRO 300 UNITS/3 ML INSULN.PEN. SQ SCH ×3 (08:00→17:05)
--- NOTE | 2019-04-30 08:34 | NUR ---
SW consulted for functional decline, needs placement. Chart reviewed and pt lives at home alone. SW requested PT/OT order to evaluate skilled needs. Will continue to follow.
--- NOTE | 2019-04-30 09:13 | NUR ---
Pt admitted with multiple falls. Would benefit from PT/OT assessment to ensure safe discharge plan. Please write PT/OT eval and treat orders if you agree. Addendum: 04/30/19 at 0914 by MAXIMINO PRADO PT Amended: Links added.
[2019-04-30] MEDS: metFORMIN 500 MG TABLET PO SCH ×2 (09:31→17:00)
[2019-04-30] MEDS: LINAGLIPTIN 5 MG TABLET PO SCH (09:32)
[2019-04-30] MEDS: ASPIRIN CHEWABLE 81 MG TABLET. PO SCH (09:32)
[2019-04-30] MEDS: LOSARTAN POTASSIUM 50 MG TABLET. PO SCH (09:32)
[2019-04-30 11:00] VITALS: BP 136/55
[2019-04-30] MEDS ORDERED: MAGNESIUM SULFATE 2GM 50 ML IV ONE (11:00)
--- NOTE | 2019-04-30 11:38 | PDOC ---
PROGRESS NOTES Chief Complaint Chief Complaint Frequent Falls Primary Progressive Aphasia HTN Anemia Toxic Encephalopathy secondary to UTI History of Present Illness History of Present Illness primary progressive aphasia diagnosis at [facility] recurrent falls, weakness, dehydration, prior UTI better today more talkative Plan: PT/OT Labs SNu Vitals Vitals Vital Signs Date Time Temp Pulse Resp B/P (MAP) Pulse Ox O2 Delivery O2 Flow Rate FiO2 04/30/19 09:33 53 144/48 04/30/19 07:00 97.8 14 95 Room Air 97.8 Physical Exam General: Alert, Cooperative, No acute distress, Other (more words today, remembers MRI, some coherent speech) Heart: Regular rate, Normal S1, Normal S2 Lungs: Clear Abdomen: Normal bowel sounds, Soft Extremities: No clubbing, No cyanosis Skin: No rashes, No breakdown Labs LABS Laboratory Tests Test 04/29/19 11:44 04/29/19 16:48 04/29/19 20:52 04/30/19 04:30 Glucose (Fingerstick) 103 mg/dL (70-99) 134 mg/dL (70-99) 107 mg/dL (70-99) Sodium Level 146 mmol/L (136-145) Potassium Level 4.1 mmol/L (3.5-5.1) Chloride Level 111 mmol/L (98-107) Carbon Dioxide Level 26 mmol/L (21-32) Anion Gap 9 (6-14) Blood Urea Nitrogen 12 mg/dL (7-20) Creatinine 0.9 mg/dL (0.6-1.0) Estimated GFR (Cockcroft-Gault) 60.2 Glucose Level 121 mg/dL (70-99) Calcium Level 8.4 mg/dL (8.5-10.1) Magnesium Level 1.6 mg/dL (1.8-2.4) Test 04/30/19 07:47 Glucose (Fingerstick) 104 mg/dL (70-99) Assessment and Plan Assessmemt and Plan Problems Medical Problems: (1) Altered mental status Status: Acute (2) Frequent falls Status: Acute (3) Right knee pain Status: Acute Comment Review of Relevant I have reviewed the following items marizol (where applicable) has been applied. Labs Laboratory Tests Test 04/28/19 13:07 04/28/19 13:24 04/28/19 17:21 04/28/19 20:21 Urine Collection Type U cath Urine Color Yellow Urine Clarity Clear Urine pH 5.5 Urine Specific [place] 1.015 Urine Protein Negative mg/dL (NEG-TRACE) Urine Glucose (UA) Negative mg/dL (NEG) Urine Ketones (Stick) Trace mg/dL (NEG) Urine Blood Negative (NEG) Urine Nitrite Negative (NEG) Urine Bilirubin Negative (NEG) Urine Urobilinogen Dipstick 0.2 mg/dL (0.2 mg/dL) Urine Leukocyte Esterase Negative (NEG) Urine RBC 0 /HPF (0-2) Urine WBC 0 /HPF (0-4) Urine Bacteria 0 /HPF (0-FEW) White Blood Count 7.6 x10^3/uL (4.0-11.0) Red Blood Count 4.06 x10^6/uL (3.50-5.40) Hemoglobin 12.1 g/dL (12.0-15.5) Hematocrit 35.2 % (36.0-47.0) Mean Corpuscular Volume 87 fL (79-100) Mean Corpuscular Hemoglobin 30 pg (25-35) Mean Corpuscular Hemoglobin Concent 34 g/dL (31-37) Red Cell Distribution Width 14.1 % (11.5-14.5) Platelet Count 241 x10^3/uL (140-400) Neutrophils (%) (Auto) 63 % (31-73) Lymphocytes (%) (Auto) 27 % (24-48) Monocytes (%) (Auto) 8 % (0-9) Eosinophils (%) (Auto) 2 % (0-3) Basophils (%) (Auto) 1 % (0-3) Neutrophils # (Auto) 4.8 x10^3/uL (1.8-7.7) Lymphocytes # (Auto) 2.0 x10^3/uL (1.0-4.8) Monocytes # (Auto) 0.6 x10^3/uL (0.0-1.1) Eosinophils # (Auto) 0.1 x10^3/uL (0.0-0.7) Basophils # (Auto) 0.1 x10^3/uL (0.0-0.2) Sodium Level 141 mmol/L (136-145) Potassium Level 3.9 mmol/L (3.5-5.1) Chloride Level 105 mmol/L (98-107) Carbon Dioxide Level 25 mmol/L (21-32) Anion Gap 11 (6-14) Blood Urea Nitrogen 17 mg/dL (7-20) Creatinine 0.9 mg/dL (0.6-1.0) Estimated GFR (Cockcroft-Gault) 60.2 BUN/Creatinine Ratio 19 (6-20) Glucose Level 111 mg/dL (70-99) Calcium Level 9.1 mg/dL (8.5-10.1) Magnesium Level 1.5 mg/dL (1.8-2.4) Total Bilirubin 1.1 mg/dL (0.2-1.0) Aspartate Amino Transf (AST/SGOT) 15 U/L (15-37) Alanine Aminotransferase (ALT/SGPT) 16 U/L (14-59) Alkaline Phosphatase 49 U/L (46-116) Creatine Kinase 110 U/L (26-192) Creatine Kinase MB (Mass) 1.6 ng/mL (0.0-3.6) Creatine Kinase MB Relative Index 1.5 % (0-4) Troponin I Quantitative < 0.017 ng/mL (0.000-0.055) CA-Ooy-E-Type Natriuretic Peptide 289 pg/mL (0-449) Total Protein 6.7 g/dL (6.4-8.2) Albumin 3.8 g/dL (3.4-5.0) Albumin/Globulin Ratio 1.3 (1.0-1.7) Thyroid Stimulating Hormone (TSH) 2.494 uIU/mL (0.358-3.74) Glucose (Fingerstick) 95 mg/dL (70-99) 116 mg/dL (70-99) Test 04/29/19 05:25 04/29/19 07:48 04/29/19 11:44 04/29/19 16:48 White Blood Count 5.9 x10^3/uL (4.0-11.0) Red Blood Count 3.99 x10^6/uL (3.50-5.40) Hemoglobin 11.9 g/dL (12.0-15.5) Hematocrit 34.6 % (36.0-47.0) Mean Corpuscular Volume 87 fL (79-100) Mean Corpuscular Hemoglobin 30 pg (25-35) Mean Corpuscular Hemoglobin Concent 34 g/dL (31-37) Red Cell Distribution Width 14.0 % (11.5-14.5) Platelet Count 231 x10^3/uL (140-400) Neutrophils (%) (Auto) 50 % (31-73) Lymphocytes (%) (Auto) 39 % (24-48) Monocytes (%) (Auto) 8 % (0-9) Eosinophils (%) (Auto) 3 % (0-3) Basophils (%) (Auto) 1 % (0-3) Neutrophils # (Auto) 2.9 x10^3/uL (1.8-7.7) Lymphocytes # (Auto) 2.3 x10^3/uL (1.0-4.8) Monocytes # (Auto) 0.5 x10^3/uL (0.0-1.1) Eosinophils # (Auto) 0.2 x10^3/uL (0.0-0.7) Basophils # (Auto) 0.1 x10^3/uL (0.0-0.2) Sodium Level 146 mmol/L (136-145) Potassium Level 3.7 mmol/L (3.5-5.1) Chloride Level 109 mmol/L (98-107) Carbon Dioxide Level 27 mmol/L (21-32) Anion Gap 10 (6-14) Blood Urea Nitrogen 13 mg/dL (7-20) Creatinine 1.0 mg/dL (0.6-1.0) Estimated GFR (Cockcroft-Gault) 53.3 Glucose Level 94 mg/dL (70-99) Calcium Level 8.4 mg/dL (8.5-10.1) Glucose (Fingerstick) 94 mg/dL (70-99) 103 mg/dL (70-99) 134 mg/dL (70-99) Test 04/29/19 20:52 04/30/19 04:30 04/30/19 07:47 Glucose (Fingerstick) 107 mg/dL (70-99) 104 mg/dL (70-99) Sodium Level 146 mmol/L (136-145) Potassium Level 4.1 mmol/L (3.5-5.1) Chloride Level 111 mmol/L (98-107) Carbon Dioxide Level 26 mmol/L (21-32) Anion Gap 9 (6-14) Blood Urea Nitrogen 12 mg/dL (7-20) Creatinine 0.9 mg/dL (0.6-1.0) Estimated GFR (Cockcroft-Gault) 60.2 Glucose Level 121 mg/dL (70-99) Calcium Level 8.4 mg/dL (8.5-10.1) Magnesium Level 1.6 mg/dL (1.8-2.4) Laboratory Tests Test 04/29/19 11:44 04/29/19 16:48 04/29/19 20:52 04/30/19 04:30 Glucose (Fingerstick) 103 mg/dL (70-99) 134 mg/dL (70-99) 107 mg/dL (70-99) Sodium Level 146 mmol/L (136-145) Potassium Level 4.1 mmol/L (3.5-5.1) Chloride Level 111 mmol/L (98-107) Carbon Dioxide Level 26 mmol/L (21-32) Anion Gap 9 (6-14) Blood Urea Nitrogen 12 mg/dL (7-20) Creatinine 0.9 mg/dL (0.6-1.0) Estimated GFR (Cockcroft-Gault) 60.2 Glucose Level 121 mg/dL (70-99) Calcium Level 8.4 mg/dL (8.5-10.1) Magnesium Level 1.6 mg/dL (1.8-2.4) Test 04/30/19 07:47 Glucose (Fingerstick) 104 mg/dL (70-99) Medications Current Medications Sodium Chloride 1,000 ml @ 1,000 mls/hr 1X ONCE IV Last administered on 04/28/19at 13:50; Start 04/28/19 at 13:00; Stop 04/28/19 at 13:59; Status DC Ondansetron HCl (Zofran) 4 mg PRN Q8HRS PRN IV NAUSEA/VOMITING; Start 04/28/19 at 14:15; Stop 04/29/19 at 14:14; Status DC Acetaminophen (Tylenol) 650 mg PRN Q4HRS PRN PO FEVER; Start 04/28/19 at 14:15; Stop 04/29/19 at 14:14; Status DC Magnesium Sulfate/ Dextrose 100 ml @ 100 mls/hr 1X ONCE IV Last administered on 04/28/19at 14:51; Start 04/28/19 at 14:15; Stop 04/28/19 at 15:14; Status DC Sodium Chloride 1,000 ml @ 75 mls/hr 1X ONCE IV Last administered on 04/28/19 16:21; Start 04/28/19 at 14:15; Stop 04/29/19 at 03:34; Status DC Aspirin (Children'S Aspirin) 81 mg DAILY PO Last administered on 04/30/19 09 :33; Start 04/29/19 at 09:00 Carvedilol (Coreg) 12.5 mg BIDWMEALS PO Last administered on 04/28/19 17:13; Start 04/28/19 at 17:00; Stop 04/29/19 at 15:17; Status DC Metformin HCl (Glucophage) 500 mg BIDWMEALS PO Last administered on 04/30/19 09:33; Start 04/28/19 at 17:00 Losartan Potassium (Cozaar) 100 mg DAILY PO Last administered on 04/30/19 09:33; Start 04/29/19 at 09:00 Atorvastatin Calcium (Lipitor) 10 mg QHS PO Last administered on 04/29/19at 20:44; Start 04/28/19 at 21:00 Linagliptin (Tradjenta) 5 mg DAILY PO Last administered on 04/30/19 09:33; Start 04/29/19 at 09:00 Insulin Human Lispro (HumaLOG) 0-5 UNITS TIDWMEALS SQ ; Start 04/28/19 at 17:00 Dextrose (Dextrose 50%-Water Syringe) 12.5 gm PRN Q15MIN PRN IV SEE COMMENTS; Start 04/28/19 at 15:45; Stop 04/28/19 at 15:48; Status DC Dextrose 250 ml PRN Q15MIN PRN IV SEE COMMENTS; Start 04/28/19 at 15:45 Heparin Sodium (Porcine) (Heparin Sodium) 5,000 unit Q8HRS SQ Last administered on 04/30/19at 05:35; Start 04/28/19 at 22:00 Potassium Chloride (Klor-Con) 40 meq 1X ONCE PO Last administered on 04/29/19at 11:58; Start 04/29/19 at 11:15; Stop 04/29/19 at 11:16; Status DC Carvedilol (Coreg) 3.125 mg BIDWMEALS PO Last administered on 04/29/19at 16:51; Start 04/29/19 at 17:00 Active Scripts Active Reported Escitalopram Oxalate 10 Mg Tablet 10 Mg PO DAILY Vitamin D3 (Cholecalciferol (Vitamin D3)) 1,000 Unit Tablet 1,000 Unit PO DAILY Citracal Soft Chew (Ca Carbonate/Vitamin D3/Vit K) 1 Each Tab.chew 1 Each PO MIKO LY Calcium (Calcium Carbonate) 600 Mg Tablet 600 Mg PO DAILY Amlodipine Besylate 5 Mg Tablet 5 Mg PO DAILY Fmsbvgtvxt-Ulgjfgukpwq-Kay Tab (Gluc/Mariano-Msm#2/C/D3/Power/Born) 1 Each Tablet 1 Each PO DAILY Aspirin 81 Mg Tab.chew 1 Tab PO DAILY Januvia (Sitagliptin Phosphate) 100 Mg Tablet 1 Tab PO DAILY Losartan Potassium 100 Mg Tablet 1 Tab PO DAILY Pravastatin Sodium 40 Mg Tablet 1 Tab PO QHS Metformin Hcl 500 Mg Tablet 1 Tab PO BID Carvedilol (Carvedilol) 12.5 Mg Tablet 1 Tab PO BID Vitals/I & O Vital Sign - Last 24 Hours 04/29/19 04/29/19 04/29/19 04/29/19 15:00 16:51 19:00 19:05 Temp 97.9 98.3 97.9 98.3 Pulse 65 61 62 Resp 17 20 B/P (MAP) 120/55 (76) 122/39 130/51 (77) Pulse Ox 94 95 O2 Delivery Room Air Room Air Room Air 04/29/19 04/30/19 04/30/19 04/30/19 23:00 03:10 07:00 09:33 Temp 97.6 97.9 97.8 97.6 97.9 97.8 Pulse 61 60 53 53 Resp 20 20 14 B/P (MAP) 124/45 (71) 144/59 (87) 144/48 (80) 144/48 Pulse Ox 93 96 95 O2 Delivery Room Air Room Air Room Air Intake and Output 04/29/19 04/29/19 04/30/19 15:00 23:00 07:00 Intake Total 120 ml Balance 120 ml MARCELINA WILL MD Apr 30, 2019 11:38
[2019-04-30] MEDS: CARVEDILOL 3.125 MG TABLET. PO SCH ×2 (13:09→17:01)
--- NOTE | 2019-04-30 14:10 | NUR ---
Wound care: Patient seen per wound care consult for a diabetic right great toe that resulted from a laceration. Wound cleansed and assessed and wound is now resolved at this time. No other wounds noted. A bandage was placed for protection. No other wounds noted. Wound care will sign off at this time. Please re consult regarding any changes per wound care. Call light in reach and bed lowered.
[2019-04-30 15:00] VITALS: BP 134/48
--- NOTE | 2019-04-30 17:56 | PDOC2 ---
NEUROLOGY CONSULT Date of Admission Date of Admission DATE: 04/30/19 TIME: 17:44 Reason for Consult Reason for Consult: IMPRESSION: Metabolic encephalopathy. Falls. Chronic progress aphasia. x 2 years. Generalized weakness. Cognitive impairment. Dementia features. DM. HTN. Obesity. No evidence of acute CVA this time. RECOMMENDATIONS/PLAN: Continue ASA daily. Continue Lipitor HS. CCT w/o contrast. EEG. Lab: see orders. Treat medical diseases. OT/PT. Discussed with her daughter at bedside on 04/30/19. History of Present Illness This is an 78 -year-old female with history of diabetes type 2, hypertension, progressive aphasia who was brought in by daughter due to recurrent falls. Patient fell 2 3 times in the past 2 days. She was recently treated with rounds of antibiotics for UTI where she was confused. She has primary progressive aphasia but no prior stroke. Past Medical History Primary Progressive Aphasia, DM, HTN, OA Past Surgical History No pertinent history Family History Non contributory. Social History Smoke: No ALCOHOL: none Drugs: None ALLERGY: NKDA MEDICATIONS: Refer to MAR REVIEW OF SYSTEMS: Constitutional: No malnutrition, weight loss, cachexia. Head: No traumatic brain or head injury. Skin: No edema, or rash. Ear: No infection. Eyes: No vision loss or color blindness. Nose: No bleeding or purulent discharges. Hearing: No hearing decrease. Neck: No injury. Breast: No history of cancer, masses,or discharges. Cardiac: HTN, HLD. Pulmonary: No COPD. GI: No GI ulcer, GI bleeding. Urinary/genital: UTI. Endocrinologic: Diabetes Mellitus. Skeletomuscular: Generalized weakness. Neurological: see HP. Psychiatric: Denies drug use/abuse. Otherwise, not [id number] review of systems. PHYSICAL EXAMINATION: General appearance is in no acute distress. HEENT: Normocephalic and nontraumatic. Eyes, nose, ears, and throat are unremarkable. Neck is supple. No lymphadenopathy. No crepitus. Cardiovascular: S1, S2, regular rate and rhythm. Pulmonary: Clear to auscultation bilaterally. Abdomen: Bowel sounds are positive. Abdomen is soft, nontender, and nondistended. Extremities: No rash, lesions, or edema. No restriction of range of motion NEUROLOGICAL EXAMINATION: Awake. Not oriented to time, place but knew person. PERRL. EOMI. CN: no focal findings. Muscle tone: within normal. Muscle strength: 5- DTR: 2- Plantar reflex: Neutral response bilaterally Gait: not examined in bed. Sensory exam: no abnormal findings. No cerebellar signs elicited. F-T-N test fine. Current Medications Current Medications Current Medications Sodium Chloride 1,000 ml @ 1,000 mls/hr 1X ONCE IV Last administered on 04/28/19at 13:50; Start 04/28/19 at 13:00; Stop 04/28/19 at 13:59; Status DC Ondansetron HCl (Zofran) 4 mg PRN Q8HRS PRN IV NAUSEA/VOMITING; Start 04/28/19 at 14:15; Stop 04/29/19 at 14:14; Status DC Acetaminophen (Tylenol) 650 mg PRN Q4HRS PRN PO FEVER; Start 04/28/19 at 14:15; Stop 04/29/19 at 14:14; Status DC Magnesium Sulfate/ Dextrose 100 ml @ 100 mls/hr 1X ONCE IV Last administered on 04/28/19at 14:51; Start 04/28/19 at 14:15; Stop 04/28/19 at 15:14; Status DC Sodium Chloride 1,000 ml @ 75 mls/hr 1X ONCE IV Last administered on 04/28/19at 16:21; Start 04/28/19 at 14:15; Stop 04/29/19 at 03:34; Status DC Aspirin (Children'S Aspirin) 81 mg DAILY PO Last administered on 04/30/19 09:33; Start 04/29/19 at 09:00 Carvedilol (Coreg) 12.5 mg BIDWMEALS PO Last administered on 04/28/19 17:13; Start 04/28/19 at 17:00; Stop 04/29/19 at 15:17; Status DC Metformin HCl (Glucophage) 500 mg BIDWMEALS PO Last administered on 04/30/19 17:05; Start 04/28/19 at 17:00 Losartan Potassium (Cozaar) 100 mg DAILY PO Last administered on 04/30/19at 09:33; Start 04/29/19 at 09:00 Atorvastatin Calcium (Lipitor) 10 mg QHS PO Last administered on 04/29/19at 20:44; Start 04/28/19 at 21:00 Linagliptin (Tradjenta) 5 mg DAILY PO Last administered on 04/30/19at 09:33; Start 04/29/19 at 09:00 Insulin Human Lispro (HumaLOG) 0-5 UNITS TIDWMEALS SQ Last administered on 04/30/19at 17:05; Start 04/28/19 at 17:00 Dextrose (Dextrose 50%-Water Syringe) 12.5 gm PRN Q15MIN PRN IV SEE COMMENTS; Start 04/28/19 at 15:45; Stop 04/28/19 at 15:48; Status DC Dextrose 250 ml PRN Q15MIN PRN IV SEE COMMENTS; Start 04/28/19 at 15:45 Heparin Sodium (Porcine) (Heparin Sodium) 5,000 unit Q8HRS SQ Last administered on 04/30/19at 16:04; Start 04/28/19 at 22:00 Potassium Chloride (Klor-Con) 40 meq 1X ONCE PO Last administered on 04/29/19at 11:58; Start 04/29/19 at 11:15; Stop 04/29/19 at 11:16; Status DC Carvedilol (Coreg) 3.125 mg BIDWMEALS PO Last administered on 04/30/19at 17:05; Start 04/29/19 at 17:00 Magnesium Sulfate 50 ml @ 25 mls/hr 1X ONCE IV Last administered on 04/30/19at 13:10; Start 04/30/19 at 11:00; Stop 04/30/19 at 12:59; Status DC Active Scripts Active Reported Escitalopram Oxalate 10 Mg Tablet 10 Mg PO DAILY Vitamin D3 (Cholecalciferol (Vitamin D3)) 1,000 Unit Tablet 1,000 Unit PO DAILY Citracal Soft Chew (Ca Carbonate/Vitamin D3/Vit K) 1 Each Tab.chew 1 Each PO DAILY Calcium (Calcium Carbonate) 600 Mg Tablet 600 Mg PO DAILY Amlodipine Besylate 5 Mg Tablet 5 Mg PO DAILY Rbzsoczize-Wmyijetosrx-Toz Tab (Gluc/Mariano-Msm#2/C/D3/Power/Born) 1 Each Tablet 1 Each PO DAILY Aspirin 81 Mg Tab.chew 1 Tab PO DAILY Januvia (Sitagliptin Phosphate) 100 Mg Tablet 1 Tab PO DAILY Losartan Potassium 100 Mg Tablet 1 Tab PO DAILY Pravastatin Sodium 40 Mg Tablet 1 Tab PO QHS Metformin Hcl 500 Mg Tablet 1 Tab PO BID Carvedilol (Carvedilol) 12.5 Mg Tablet 1 Tab PO BID Allergies Allergies: Allergies Coded Allergies Type Severity Reaction Last Updated Verified No Known Drug Allergies 04/09/15 No ROS Review of System The patient denies any associated fevers, chills, headache, ear pain, rhinorrhea, sore throat, stiff neck, productive cough, chest pain, shortness of breath, back or flank pain, abdominal pain, nausea, vomiting, diarrhea, constipation, dysuria, rash, numbness, weakness, tingling, incontinence, difficulty ambulating, or diaphoresis. Physical Exam Physical Exam General: Well developed, well nourished, no acute distress, well appearing HEENT: Pupils equally round and reactive to light, EOMI, no discharge, normal conjunctiva Neck: Supple, no nuchal rigidity, no JVD, trachea midline, no tenderness Cardiac: RRR, no murmurs, no gallops, no rubs Chest/Lungs: CTAB, no wheeze, no rhonchi, no crackles Abdomen: soft, non-distended, no guarding, no peritoneal signs, non-tender Back: No tenderness Extremities: no edema, pulses intact, non-tender,capillary refill <3 sec bilateral upper and lower extremities, Neuro: Alert and oriented x 4, no focal deficits, normal speech Vitals Vitals: Vital Signs Date Time Temp Pulse Resp B/P (MAP) Pulse Ox O2 Delivery O2 Flow Rate FiO2 04/30/19 17:05 63 119/60 04/30/19 15:00 98.1 16 95 Room Air 98.1 Labs Labs Laboratory Tests Test 04/28/19 20:21 04/29/19 05:25 04/29/19 07:48 04/29/19 11:44 Glucose (Fingerstick) 116 mg/dL (70-99) 94 mg/dL (70-99) 103 mg/dL (70-99) White Blood Count 5.9 x10^3/uL (4.0-11.0) Red Blood Count 3.99 x10^6/uL (3.50-5.40) Hemoglobin 11.9 g/dL (12.0-15.5) Hematocrit 34.6 % (36.0-47.0) Mean Corpuscular Volume 87 fL (79-100) Mean Corpuscular Hemoglobin 30 pg (25-35) Mean Corpuscular Hemoglobin Concent 34 g/dL (31-37) Red Cell Distribution Width 14.0 % (11.5-14.5) Platelet Count 231 x10^3/uL (140-400) Neutrophils (%) (Auto) 50 % (31-73) Lymphocytes (%) (Auto) 39 % (24-48) Monocytes (%) (Auto) 8 % (0-9) Eosinophils (%) (Auto) 3 % (0-3) Basophils (%) (Auto) 1 % (0-3) Neutrophils # (Auto) 2.9 x10^3/uL (1.8-7.7) Lymphocytes # (Auto) 2.3 x10^3/uL (1.0-4.8) Monocytes # (Auto) 0.5 x10^3/uL (0.0-1.1) Eosinophils # (Auto) 0.2 x10^3/uL (0.0-0.7) Basophils # (Auto) 0.1 x10^3/uL (0.0-0.2) Sodium Level 146 mmol/L (136-145) Potassium Level 3.7 mmol/L (3.5-5.1) Chloride Level 109 mmol/L (98-107) Carbon Dioxide Level 27 mmol/L (21-32) Anion Gap 10 (6-14) Blood Urea Nitrogen 13 mg/dL (7-20) Creatinine 1.0 mg/dL (0.6-1.0) Estimated GFR (Cockcroft-Gault) 53.3 Glucose Level 94 mg/dL (70-99) Calcium Level 8.4 mg/dL (8.5-10.1) Test 04/29/19 16:48 04/29/19 20:52 04/30/19 04:30 04/30/19 07:47 Glucose (Fingerstick) 134 mg/dL (70-99) 107 mg/dL (70-99) 104 mg/dL (70-99) Sodium Level 146 mmol/L (136-145) Potassium Level 4.1 mmol/L (3.5-5.1) Chloride Level 111 mmol/L (98-107) Carbon Dioxide Level 26 mmol/L (21-32) Anion Gap 9 (6-14) Blood Urea Nitrogen 12 mg/dL (7-20) Creatinine 0.9 mg/dL (0.6-1.0) Estimated GFR (Cockcroft-Gault) 60.2 Glucose Level 121 mg/dL (70-99) Calcium Level 8.4 mg/dL (8.5-10.1) Magnesium Level 1.6 mg/dL (1.8-2.4) Test 04/30/19 11:01 04/30/19 16:37 Glucose (Fingerstick) 87 mg/dL (70-99) 160 mg/dL (70-99) Laboratory Tests Test 04/29/19 20:52 04/30/19 04:30 04/30/19 07:47 04/30/19 11:01 Glucose (Fingerstick) 107 mg/dL (70-99) 104 mg/dL (70-99) 87 mg/dL (70-99) Sodium Level 146 mmol/L (136-145) Potassium Level 4.1 mmol/L (3.5-5.1) Chloride Level 111 mmol/L (98-107) Carbon Dioxide Level 26 mmol/L (21-32) Anion Gap 9 (6-14) Blood Urea Nitrogen 12 mg/dL (7-20) Creatinine 0.9 mg/dL (0.6-1.0) Estimated GFR (Cockcroft-Gault) 60.2 Glucose Level 121 mg/dL (70-99) Calcium Level 8.4 mg/dL (8.5-10.1) Magnesium Level 1.6 mg/dL (1.8-2.4) Test 04/30/19 16:37 Glucose (Fingerstick) 160 mg/dL (70-99) TY MCKEON MD Apr 30, 2019 17:56
[2019-04-30 19:00] VITALS: BP 123/54
[2019-04-30] MEDS: ATORVASTATIN CALCIUM 10 MG TABLET. PO SCH (21:17)
[2019-04-30 23:00] VITALS: BP 129/87
[2019-05-01 03:00] VITALS: BP 150/49
[2019-05-01] MEDS: HEPARIN for SUB-Q USE 5,000 UNIT/ML VIAL. SQ SCH ×3 (05:24→20:20)
[2019-05-01 07:00] VITALS: BP 129/54
[2019-05-01] MEDS: INSULIN LISPRO 300 UNITS/3 ML INSULN.PEN. SQ SCH ×3 (08:00→17:00)
--- NOTE | 2019-05-01 08:14 | RAD ---
EXAM: Ct Cervical Spine Without Iv Contrast CLINICAL HISTORY: Falls, neck pain COMPARISON: None available. TECHNIQUE: Helical CT of the cervical spine was performed. Axial, coronal and sagittal reformatted images were also performed. PQRS compliance statement - One or more of the following individualized dose reduction techniques were utilized for this study: 1. Automated exposure control 2. Adjustment of the mA and/or kV according to patient size 3. Use of iterative reconstruction technique FINDINGS: Vertebral body heights are preserved. No evidence for acute fracture. However evaluation limited given decreased bone density. Atlantodental degenerative changes are seen. Moderate C4-5 and moderate to severe C5-6 and C6-7 disc height loss. Small anterior posterior endplate osteophytes are seen at C4-C7. Straightening of the normal cervical lordosis. No spondylolisthesis. C2-C3: No significant central canal stenosis or neural foraminal narrowing. C3-C4: Moderate right facet degenerative changes results in mild right neural foraminal narrowing. No significant central canal stenosis or neural foraminal narrowing. C4-C5: Posterior disc osteophyte complex eccentric to the left with prominent left uncovertebral hypertrophy and prominent left facet degenerative changes results in moderate left neural foraminal narrowing. Mild left ventral central canal narrowing. No significant right neural foraminal narrowing. C5-C6: Posterior disc osteophyte complex with uncovertebral hypertrophy and mild facet degenerative changes results in moderate central canal stenosis and moderate bilateral neural foraminal narrowing. C6-C7: Posterior disc osteophyte complex with uncovertebral hypertrophy and facet degenerative changes results in mild central canal stenosis and moderate bilateral neural foraminal narrowing. C7-T1: No significant central canal stenosis or neural foraminal narrowing. IMPRESSION: 1. Multilevel spondylosis as above 2. Negative acute fracture or subluxation. Electronically signed by: Too Ryder MD (05/01/2019 8:11 AM) [facility]
--- NOTE | 2019-05-01 11:21 | NUR ---
SW following pt. OT recommends SNU and PT pending. Spoke with pt's daughter, Brea, regarding SNU, medicare coverage and options. Pt's daughter is provided with list of SNU with medicare ratings. Daughter to look into some facilities today and will notify SW with a decision. Per daughter, pt is on a wait list to get in to the [facility]. Discussed with RN
[2019-05-01 11:43] VITALS: BP 139/48
[2019-05-01] MEDS: CARVEDILOL 3.125 MG TABLET. PO SCH ×2 (11:47→17:46)
[2019-05-01] MEDS: LOSARTAN POTASSIUM 50 MG TABLET. PO SCH (11:47)
[2019-05-01] MEDS: LINAGLIPTIN 5 MG TABLET PO SCH (11:47)
[2019-05-01] MEDS: metFORMIN 500 MG TABLET PO SCH ×2 (11:47→17:46)
[2019-05-01] MEDS: ASPIRIN CHEWABLE 81 MG TABLET. PO SCH (11:47)
--- NOTE | 2019-05-01 13:02 | NUR ---
SW following pt. Pt's daughter, Brea Lee, , fax: [phone]. SW will fax referral once PT notes are in. Discussed with RN. Will continue to follow.
[2019-05-01 15:00] VITALS: BP 145/52
--- NOTE | 2019-05-01 16:36 | PDOC ---
PROGRESS NOTES Chief Complaint Chief Complaint Frequent Falls Primary Progressive Aphasia HTN Anemia Toxic Encephalopathy secondary to UTI History of Present Illness History of Present Illness primary progressive aphasia recurrent falls, weakness, dehydration, prior UTI better today, agian, need placement, neuro following, EEG today more talkative Vitals Vitals Vital Signs Date Time Temp Pulse Resp B/P (MAP) Pulse Ox O2 Delivery O2 Flow Rate FiO2 05/01/19 15:00 97.9 60 18 145/52 (83) 95 Room Air 97.9 Physical Exam General: Alert, Cooperative, No acute distress, Other (more words today, remembers MRI, some coherent speech) Heart: Regular rate, Normal S1, Normal S2 Lungs: Clear Abdomen: Normal bowel sounds, Soft Extremities: No clubbing, No cyanosis Skin: No rashes, No breakdown Labs LABS Laboratory Tests Test 04/30/19 16:37 04/30/19 21:18 05/01/19 07:09 05/01/19 11:22 Glucose (Fingerstick) 160 mg/dL (70-99) 99 mg/dL (70-99) 115 mg/dL (70-99) 140 mg/dL (70-99) Assessment and Plan Assessmemt and Plan Problems Medical Problems: (1) Altered mental status Status: Acute (2) Frequent falls Status: Acute (3) Right knee pain Status: Acute Comment Review of Relevant I have reviewed the following items marizol (where applicable) has been applied. Labs Laboratory Tests Test 04/29/19 16:48 04/29/19 20:52 04/30/19 04:30 04/30/19 07:47 Glucose (Fingerstick) 134 mg/dL (70-99) 107 mg/dL (70-99) 104 mg/dL (70-99) Sodium Level 146 mmol/L (136-145) Potassium Level 4.1 mmol/L (3.5-5.1) Chloride Level 111 mmol/L (98-107) Carbon Dioxide Level 26 mmol/L (21-32) Anion Gap 9 (6-14) Blood Urea Nitrogen 12 mg/dL (7-20) Creatinine 0.9 mg/dL (0.6-1.0) Estimated GFR (Cockcroft-Gault) 60.2 Glucose Level 121 mg/dL (70-99) Calcium Level 8.4 mg/dL (8.5-10.1) Magnesium Level 1.6 mg/dL (1.8-2.4) Test 04/30/19 11:01 04/30/19 16:37 04/30/19 21:18 05/01/19 07:09 Glucose (Fingerstick) 87 mg/dL (70-99) 160 mg/dL (70-99) 99 mg/dL (70-99) 115 mg/dL (70-99) Test 05/01/19 11:22 Glucose (Fingerstick) 140 mg/dL (70-99) Laboratory Tests Test 04/30/19 16:37 04/30/19 21:18 05/01/19 07:09 05/01/19 11:22 Glucose (Fingerstick) 160 mg/dL (70-99) 99 mg/dL (70-99) 115 mg/dL (70-99) 140 mg/dL (70-99) Medications Current Medications Sodium Chloride 1,000 ml @ 1,000 mls/hr 1X ONCE IV Last administered on 04/28/19at 13:50; Start 04/28/19 at 13:00; Stop 04/28/19 at 13:59; Status DC Ondansetron HCl (Zofran) 4 mg PRN Q8HRS PRN IV NAUSEA/VOMITING; Start 04/28/19 at 14:15; Stop 04/29/19 at 14:14; Status DC Acetaminophen (Tylenol) 650 mg PRN Q4HRS PRN PO FEVER; Start 04/28/19 at 14:15; Stop 04/29/19 at 14:14; Status DC Magnesium Sulfate/ Dextrose 100 ml @ 100 mls/hr 1X ONCE IV Last administered on 04/28/19at 14:51; Start 04/28/19 at 14:15; Stop 04/28/19 at 15:14; Status DC Sodium Chloride 1,000 ml @ 75 mls/hr 1X ONCE IV Last administered on 04/28/19at 16:21; Start 04/28/19 at 14:15; Stop 04/29/19 at 03:34; Status DC Aspirin (Children'S Aspirin) 81 mg DAILY PO Last administered on 05/01/19at 11:49; Start 04/29/19 at 09:00 Carvedilol (Coreg) 12.5 mg BIDWMEALS PO Last administered on 04/28/19 17:13; Start 04/28/19 at 17:00; Stop 04/29/19 at 15:17; Status DC Metformin HCl (Glucophage) 500 mg BIDWMEALS PO Last administered on 05/01/19 11:49; Start 04/28/19 at 17:00 Losartan Potassium (Cozaar) 100 mg DAILY PO Last administered on 05/01/19 11:49; Start 04/29/19 at 09:00 Atorvastatin Calcium (Lipitor) 10 mg QHS PO Last administered on 04/30/19 21:22; Start 04/28/19 at 21:00 Linagliptin (Tradjenta) 5 mg DAILY PO Last administered on 05/01/19 11:49; Start 04/29/19 at 09:00 Insulin Human Lispro (HumaLOG) 0-5 UNITS TIDWMEALS SQ Last administered on 04/30/19 17:05; Start 04/28/19 at 17:00 Dextrose (Dextrose 50%-Water Syringe) 12.5 gm PRN Q15MIN PRN IV SEE COMMENTS; Start 04/28/19 at 15:45; Stop 04/28/19 at 15:48; Status DC Dextrose 250 ml PRN Q15MIN PRN IV SEE COMMENTS; Start 04/28/19 at 15:45 Heparin Sodium (Porcine) (Heparin Sodium) 5,000 unit Q8HRS SQ Last administered on 05/01/19at 15:34; Start 04/28/19 at 22:00 Potassium Chloride (Klor-Con) 40 meq 1X ONCE PO Last administered on 04/29/19at 11:58; Start 04/29/19 at 11:15; Stop 04/29/19 at 11:16; Status DC Carvedilol (Coreg) 3.125 mg BIDWMEALS PO Last administered on 05/01/19 11:49; Start 04/29/19 at 17:00 Magnesium Sulfate 50 ml @ 25 mls/hr 1X ONCE IV Last administered on 04/30/19 13:10; Start 04/30/19 at 11:00; Stop 04/30/19 at 12:59; Status DC Active Scripts Active Reported Escitalopram Oxalate 10 Mg Tablet 10 Mg PO DAILY Vitamin D3 (Cholecalciferol (Vitamin D3)) 1,000 Unit Tablet 1,000 Unit PO DAILY Citracal Soft Chew (Ca Carbonate/Vitamin D3/Vit K) 1 Each Tab.chew 1 Each PO DAILY Calcium (Calcium Carbonate) 600 Mg Tablet 600 Mg PO DAILY Amlodipine Besylate 5 Mg Tablet 5 Mg PO DAILY Soqocjejrb-Ubuxfvcgprx-Nvm Tab (Gluc/Mariano-Msm#2/C/D3/Power/Born) 1 Each Tablet 1 Each PO DAILY Aspirin 81 Mg Tab.chew 1 Tab PO DAILY Januvia (Sitagliptin Phosphate) 100 Mg Tablet 1 Tab PO DAILY Losartan Potassium 100 Mg Tablet 1 Tab PO DAILY Pravastatin Sodium 40 Mg Tablet 1 Tab PO QHS Metformin Hcl 500 Mg Tablet 1 Tab PO BID Carvedilol (Carvedilol) 12.5 Mg Tablet 1 Tab PO BID Vitals/I & O Vital Sign - Last 24 Hours 04/30/19 04/30/19 04/30/19 04/30/19 17:05 19:00 20:09 23:00 Temp 98.4 98.1 98.4 98.1 Pulse 63 61 57 Resp 17 17 B/P (MAP) 119/60 123/54 (77) 129/87 (101) Pulse Ox 94 94 O2 Delivery Room Air Room Air Room Air 05/01/19 05/01/19 05/01/19 05/01/19 03:00 07:00 08:00 11:43 Temp 98.0 97.9 97.8 98.0 97.9 97.8 Pulse 57 58 64 Resp 17 18 20 B/P (MAP) 150/49 (82) 129/54 (79) 139/48 (78) Pulse Ox 97 94 96 O2 Delivery Room Air Room Air Room Air Room Air 05/01/19 05/01/19 05/01/19 11:49 11:49 15:00 Temp 97.9 97.9 Pulse 64 64 60 Resp 18 B/P (MAP) 139/48 139/48 145/52 (83) Pulse Ox 95 O2 Delivery Room Air Intake and Output 04/30/19 04/30/19 05/01/19 15:00 23:00 07:00 Intake Total 1120 ml 180 ml Balance 1120 ml 180 ml MARCELINA WILL MD May 01, 2019 16:36
[2019-05-01 19:00] VITALS: BP 127/49
--- NOTE | 2019-05-01 19:38 | PDOC ---
PROGRESS NOTES Assessment Assessment Metabolic encephalopathy. Falls. Chronic progress aphasia. x 2 years. Generalized weakness. Cognitive impairment. PSP? DM. HTN. Obesity. No evidence of acute CVA this time. RECOMMENDATIONS/PLAN: Continue ASA daily. Continue Lipitor HS. Treat medical diseases. OT/PT. Discussed with her daughter again at bedside on 05/01/19. EEG: WNL. History of Present Illness This is an 78 -year-old female with history of diabetes type 2, hypertension, progressive aphasia who was brought in by daughter due to recurrent falls. Patient fell 2 3 times in the past 2 days. She was recently treated with rounds of antibiotics for UTI where she was confused. She has primary progressive aphasia but no prior stroke. Past Medical History Primary Progressive Aphasia, DM, HTN, OA Past Surgical History No pertinent history Family History Non contributory. Social History Smoke: No ALCOHOL: none Drugs: None ALLERGY: NKDA MEDICATIONS: Refer to MAR REVIEW OF SYSTEMS: Constitutional: No malnutrition, weight loss, cachexia. Head: No traumatic brain or head injury. Skin: No edema, or rash. Ear: No infection. Eyes: No vision loss or color blindness. Nose: No bleeding or purulent discharges. Hearing: No hearing decrease. Neck: No injury. Breast: No history of cancer, masses,or discharges. Cardiac: HTN, HLD. Pulmonary: No COPD. GI: No GI ulcer, GI bleeding. Urinary/genital: UTI. Endocrinologic: Diabetes Mellitus. Skeletomuscular: Generalized weakness. Neurological: see HP. Psychiatric: Denies drug use/abuse. Otherwise, not -fpcta review of systems. PHYSICAL EXAMINATION: General appearance is in no acute distress. HEENT: Normocephalic and nontraumatic. Eyes, nose, ears, and throat are unremarkable. Neck is supple. No lymphadenopathy. No crepitus. Cardiovascular: S1, S2, regular rate and rhythm. Pulmonary: Clear to auscultation bilaterally. Abdomen: Bowel sounds are positive. Abdomen is soft, nontender, and nondiste nded. Extremities: No rash, lesions, or edema. No restriction of range of motion NEUROLOGICAL EXAMINATION: Awake. Not oriented to time, place but knew person. PERRL. EOMI. CN: no focal findings. Muscle tone: within normal. Muscle strength: 5- DTR: 2- Plantar reflex: Neutral response bilaterally Gait: not examined in bed. Sensory exam: no abnormal findings. No cerebellar signs elicited. F-T-N test fine. Objective Objective Vital Signs Date Time Temp Pulse Resp B/P (MAP) Pulse Ox O2 Delivery O2 Flow Rate FiO2 05/01/19 17:46 66 121/45 05/01/19 15:00 97.9 18 95 Room Air 97.9 Intake and Output 05/01/19 07:00 Intake Total 1300 ml Balance 1300 ml Intake Oral 1300 ml # Voids 2 Vitals Signs Vitals VS - Last 72 Hours, by Label Date Time Temp Pulse Resp B/P (MAP) Pulse Ox O2 Delivery O2 Flow Rate FiO2 05/01/19 17:46 66 121/45 05/01/19 15:00 97.9 60 18 145/52 (83) 95 Room Air 97.9 05/01/19 11:49 64 139/48 05/01/19 11:49 64 139/48 05/01/19 11:43 97.8 64 20 139/48 (78) 96 Room Air 97.8 05/01/19 08:00 Room Air 05/01/19 07:00 97.9 58 18 129/54 (79) 94 Room Air 97.9 05/01/19 03:00 98.0 57 17 150/49 (82) 97 Room Air 98.0 04/30/19 23:00 98.1 57 17 129/87 (101) 94 Room Air 98.1 04/30/19 20:09 Room Air 04/30/19 19:00 98.4 61 17 123/54 (77) 94 Room Air 98.4 04/30/19 17:05 63 119/60 04/30/19 15:00 98.1 60 16 134/48 (76) 95 Room Air 98.1 04/30/19 13:10 58 136/55 04/30/19 11:00 97.6 58 16 136/55 (82) 96 Room Air 97.6 04/30/19 09:33 53 144/48 04/30/19 08:00 Room Air 04/30/19 07:00 97.8 53 14 144/48 (80) 95 Room Air 97.8 Laboratory Laboratory Laboratory Tests Test 04/30/19 21:18 05/01/19 07:09 05/01/19 11:22 05/01/19 16:54 Glucose (Fingerstick) 99 mg/dL (70-99) 115 mg/dL (70-99) 140 mg/dL (70-99) 126 mg/dL (70-99) Comment Review of Relevant I have reviewed the following items marizol (where applicable) has been applied. TY MCKEON MD May 01, 2019 19:38
[2019-05-01] MEDS: ATORVASTATIN CALCIUM 10 MG TABLET. PO SCH (20:20)
[2019-05-01 23:00] VITALS: BP 123/50
[2019-05-02 03:00] VITALS: BP 156/47
[2019-05-02] MEDS: HEPARIN for SUB-Q USE 5,000 UNIT/ML VIAL. SQ SCH ×2 (05:45→14:00)
[2019-05-02 07:00] VITALS: BP 134/51
[2019-05-02] MEDS: INSULIN LISPRO 300 UNITS/3 ML INSULN.PEN. SQ SCH ×2 (08:00→11:59)
[2019-05-02] MEDS: CARVEDILOL 3.125 MG TABLET. PO SCH (08:11)
[2019-05-02] MEDS: metFORMIN 500 MG TABLET PO SCH (08:11)
[2019-05-02] MEDS: ASPIRIN CHEWABLE 81 MG TABLET. PO SCH (08:11)
[2019-05-02] MEDS: LINAGLIPTIN 5 MG TABLET PO SCH (08:12)
[2019-05-02] MEDS: LOSARTAN POTASSIUM 50 MG TABLET. PO SCH (08:12)
[2019-05-02] MEDS ORDERED: CARV3.1210 PO (10:10)
--- NOTE | 2019-05-02 10:10 | SNU/HH DC ---
DISCHARGE ORDERS DISCHARGE INFORMATION: DISCHARGE DATE: May 02, 2019 FINAL DIAGNOSIS Problems Medical Problems: (1) Altered mental status Status: Acute (2) Frequent falls Status: Acute (3) Right knee pain Status: Acute CONDITION ON DISCHARGE: Stable CODE STATUS: Code Status: Full PENITENTIARY: SNF STAY <30 DAYS: Yes POST DISCHARGE ORDERS: ACTIVITY ORDERS: No restrictions WEIGHT BEARING STATUS: No restrictions DIET AFTER DISCHARGE: ADA FOLLOW-UP: PHYSICIAN FOLLOW-UP: primary care TREATMENT/EQUIPMENT ORDERS: Physical Therapy For: Evalulation/Treatment Occupational Therapy For: Evaluation/Treatment DISCHARGE MEDICATIONS: Home Meds Reported Medications Escitalopram Oxalate (Escitalopram Oxalate) 10 Mg Tablet, 10 MG PO DAILY for anti-depressant 04/28/19 Cholecalciferol (Vitamin D3) (VITAMIN D3) 1,000 Unit Tablet, 1000 UNIT PO DAILY for supplement, TAB 04/28/19 Ca Carbonate/Vitamin D3/Vit K (CITRACAL SOFT CHEW) 1 Each Tab.chew, 1 EACH PO DAILY for supplement, TAB.CHEW 04/28/19 Calcium Carbonate (CALCIUM) 600 Mg Tablet, 600 MG PO DAILY for supplement, TAB 04/28/19 Amlodipine Besylate (AMLODIPINE BESYLATE) 5 Mg Tablet, 5 MG PO DAILY for hypertension 04/28/19 Gluc/Mariano-Msm#2/C/D3/Power/Born (QCQHAKPMJA-KQVSRXMTUWS-BDT TAB) 1 Each Tablet, 1 EACH PO DAILY for supplement, TAB 04/28/19 Aspirin (ASPIRIN) 81 Mg Tab.chew, 1 TAB PO DAILY, #30 TAB 3 Refills 04/09/15 Sitagliptin Phosphate (JANUVIA) 100 Mg Tablet, 1 TAB PO DAILY, #30 TAB 5 Refills 04/09/15 Losartan Potassium (LOSARTAN POTASSIUM) 100 Mg Tablet, 1 TAB PO DAILY, #30 TAB 5 Refills 04/09/15 Pravastatin Sodium (PRAVASTATIN SODIUM) 40 Mg Tablet, 1 TAB PO QHS, #90 TAB 1 Refill 04/09/15 Metformin Hcl (METFORMIN HCL) 500 Mg Tablet, 1 TAB PO BID, #60 TAB 3 Refills 04/09/15 Carvedilol (CARVEDILOL ) 12.5 Mg Tablet, 1 TAB PO BID, #180 TAB 1 Refill 04/09/15 MARCELINA WILL MD May 02, 2019 10:10
--- NOTE | 2019-05-02 10:16 | NUR ---
TAMERA following pt. TAMERA phoned and faxed referral to [facility]. Pt acceptance and admission pending. Will continue to follow.
[2019-05-02 11:00] VITALS: BP 124/44
--- NOTE | 2019-05-02 13:07 | PDOC3 ---
Discharge Summary Visit Information Date of Admission: Apr 28, 2019 Date of Discharge: May 02, 2019 Final Diagnosis Frequent Falls Primary Progressive Aphasia HTN Anemia Toxic Encephalopathy secondary to UTI Dm2 Problems Medical Problems: (1) Altered mental status Status: Acute (2) Frequent falls Status: Acute (3) Right knee pain Status: Acute Brief Hospital Course Allergies Allergies Coded Allergies Type Severity Reaction Last Updated Verified No Known Drug Allergies 04/09/15 No Vital Signs Vital Signs Date Time Temp Pulse Resp B/P (MAP) Pulse Ox O2 Delivery O2 Flow Rate FiO2 05/02/19 11:00 97.6 60 20 124/44 (70) 94 Room Air 97.6 Lab Results Laboratory Tests Test 04/30/19 16:37 04/30/19 21:18 05/01/19 07:09 05/01/19 11:22 Glucose (Fingerstick) 160 mg/dL (70-99) 99 mg/dL (70-99) 115 mg/dL (70-99) 140 mg/dL (70-99) Test 05/01/19 16:54 05/01/19 20:48 05/02/19 07:51 05/02/19 11:43 Glucose (Fingerstick) 126 mg/dL (70-99) 114 mg/dL (70-99) 101 mg/dL (70-99) 127 mg/dL (70-99) Laboratory Tests Test 05/01/19 16:54 05/01/19 20:48 05/02/19 07:51 05/02/19 11:43 Glucose (Fingerstick) 126 mg/dL (70-99) 114 mg/dL (70-99) 101 mg/dL (70-99) 127 mg/dL (70-99) Brief Hospital Course Ms. Montez is a 78 old admit for possible confusion, but new weakness, mental status hard to qualify, aphasia at baseline\ recurrent falls, weakness, dehydration, prior UTI better with support and IV fluids neuro consult, EEG neg MRI OK Discharge Information Condition at Discharge: Improved Follow Up: Weeks Disposition/Orders: D/C to Another Facility (skilled) Scheduled Amlodipine Besylate (Amlodipine Besylate) 5 Mg Tablet, 5 MG PO DAILY for h ypertension, (Reported) Entered as Reported by: MICHAEL VICKERS on 04/28/191550 Last Action: New Order on 04/28/191550 by MICHAEL VICKERS Aspirin (Aspirin) 81 Mg Tab.chew, 1 TAB PO DAILY, #30 Ref 3 (Reported) Entered as Reported by: ELVIN ANAYA on 04/09/15935 Last Action: Reviewed on 04/28/191550 by MICHAEL VICKERS Ca Carbonate/Vitamin D3/Vit K (Citracal Soft Chew) 1 Each Tab.chew, 1 EACH PO DAILY for supplement, (Reported) Entered as Reported by: MICHAEL VICKERS on 04/28/191550 Last Action: New Order on 04/28/191550 by MICHAEL VICKERS Calcium Carbonate (Calcium) 600 Mg Tablet, 600 MG PO DAILY for supplement, (R eported) Entered as Reported by: MICHAEL VICKERS on 04/28/191550 Last Action: New Order on 04/28/191550 by MICHAEL VICKERS Carvedilol (Carvedilol ) 3.125 Mg Tablet, 3.125 MG PO BIDWMEALS for htn, #60 Prescribed by: MARCELINA WILL on 05/02/19 1010 Cholecalciferol (Vitamin D3) (Vitamin D3) 1,000 Unit Tablet, 1,000 UNIT PO DAILY for supplement, (Reported) Entered as Reported by: MICHAEL VICKERS on 04/28/191550 Last Action: New Order on 04/28/191550 by MICHAEL VICKERS Escitalopram Oxalate (Escitalopram Oxalate) 10 Mg Tablet, 10 MG PO DAILY for anti-depressant, (Reported) Entered as Reported by: MICHAEL VICKERS on 04/28/191550 Last Action: New Order on 04/28/191550 by MICHAEL VICKERS Gluc/Mariano-Msm#2/C/D3/Power/Born (Plrntmbyak-Ljrpsstqbjy-Wdv Tab) 1 Each Tablet, 1 EACH PO DAILY for supplement, (Reported) Entered as Reported by: MICHAEL VICKERS on 04/28/191550 Last Action: New Order on 04/28/191550 by MICHAEL VICKERS Losartan Potassium (Losartan Potassium) 100 Mg Tablet, 1 TAB PO DAILY, #30 Ref 5 (Reported) Entered as Reported by: ELVIN ANAYA on 04/09/15935 Last Action: Reviewed on 04/28/191550 by MICHAEL VICKERS Metformin Hcl (Metformin Hcl) 500 Mg Tablet, 1 TAB PO BID, #60 Ref 3 (Reported) Entered as Reported by: ELVIN ANAYA on 04/09/15935 Last Action: Reviewed on 04/28/191550 by MICHAEL VICKERS Pravastatin Sodium (Pravastatin Sodium) 40 Mg Tablet, 1 TAB PO QHS, #90 Ref 1 (Reported) Entered as Reported by: ELVIN ANAYA on 04/09/15935 Last Action: Reviewed on 04/28/191550 by MICHAEL VICKERS Sitagliptin Phosphate (Januvia) 100 Mg Tablet, 1 TAB PO DAILY, #30 Ref 5 (Reported) Entered as Reported by: ELVIN ANAYA on 04/09/15935 Last Action: Reviewed on 04/28/191550 by MICHAEL VICKERS Discontinued Medications Carvedilol (Carvedilol ) 12.5 Mg Tablet, 1 TAB PO BID, #180 Ref 1 (Reported) Entered as Reported by: ELVIN ANAYA on 04/09/15935 Last Action: Reviewed on 04/28/191550 by MICHAEL VICKERS Patient Instructions Patient Instructions > 30 min face to face and exam MARCELINA FREEMAN MD May 02, 2019 13:07
--- NOTE | 2019-05-02 13:11 | NUR ---
SW following pt. Pt has been accepted at [facility] and transport via facility arranged transport at 1330. Orders faxed and packet on chart. Pt's daughter, Brea aware of plans and agreeable. Discussed with RN.
--- NOTE | 2019-05-02 14:03 | NUR ---
Discharge Note: VICK GROSS Discharge instructions and discharge home medications reviewed with Other facility and a copy given. All questions have been answered and understanding verbalized. The following instructions and handouts were given: discharge instructions. Discontinued lines and drains: Peripheral IV discontinued intact. Patient discharged to [facility] with Transport Personnel via Wheelchair
--- NOTE | 2019-05-02 16:20 | EEG ---
DATE OF SERVICE: 05/01/2019 EEG NUMBER: [id number] OBJECTIVE: This is an 78-year-old female patient who has mental status changes. EEG was requested to evaluate cerebral activity. METHODS: Twenty electrodes were applied according to the international 10-20 electrode placement system. EKG monitoring, hyperventilation, intermittent photic stimulation, monopolar and bipolar montages are routinely utilized. The record was obtained on a digital system with video monitoring. FINDINGS: 1. Background: The patient was recorded in the awake and drowsy states. No actual sleep state was recorded. The overall background amplitude is 5-10 microvolts. A posterior dominant rhythm of 8 Hz is observed. 2. Abnormalities: No specific epileptiform discharge or electrographic seizure is seen. No focal or diffuse slowing. 3. Activation: Hyperventilation was not performed because the patient did not follow commands. Intermittent photic stimulation was performed with photic driving. IMPRESSION: This EEG is within the broad normal limits of the study for the awake and drowsy states. No actual sleep state was recorded. No focal, lateralizing, specific epileptiform discharge, or electrographic seizure is seen. TY MCKEON MD DR: EUGENE/tim JOB#: [id number] / [id number] LOUANN
--- NOTE | 2019-05-03 17:09 | PDOC ---
PROGRESS NOTES Assessment Assessment Neurology Progress Note 05-02-19 Metabolic encephalopathy. Falls. Chronic progress aphasia. x 2 years. Generalized weakness. Cognitive impairment. PSP? DM. HTN. Obesity. No evidence of acute CVA this time. RECOMMENDATIONS/PLAN: Continue ASA daily. Continue Lipitor HS. Treat medical diseases. OT/PT. FU with PCP. EEG: WNL. History of Present Illness This is an 78 -year-old female with history of diabetes type 2, hypertension, progressive aphasia who was brought in by daughter due to recurrent falls. Patient fell 2 3 times in the past 2 days. She was recently treated with rounds of antibiotics for UTI where she was confused. She has primary progressive aphasia but no prior stroke. No new complaints on 05/02/19. Past Medical History Primary Progressive Aphasia, DM, HTN, OA Past Surgical History No pertinent history Family History Non contributory. Social History Smoke: No ALCOHOL: none Drugs: None ALLERGY: NKDA MEDICATIONS: Refer to MAR REVIEW OF SYSTEMS: Constitutional: No malnutrition, weight loss, cachexia. Head: No traumatic brain or head injury. Skin: No edema, or rash. Ear: No infection. Eyes: No vision loss or color blindness. Nose: No bleeding or purulent discharges. Hearing: No hearing decrease. Neck: No injury. Breast: No history of cancer, masses,or discharges. Cardiac: HTN, HLD. Pulmonary: No COPD. GI: No GI ulcer, GI bleeding. Urinary/genital: UTI. Endocrinologic: Diabetes Mellitus. Skeletomuscular: Generalized weakness. Neurological: see HP. Psychiatric: Denies drug use/abuse. Otherwise, not [id number] review of systems. PHYSICAL EXAMINATION: General appearance is in no acute distress. HEENT: Normocephalic and nontraumatic. Eyes, nose, ears, and throat are unremarkable. Neck is supple. No lymphadenopathy. No crepitus. Cardiovascular: S1, S2, regular rate and rhythm. Pulmonary: Clear to auscultation bilaterally. Abdomen: Bowel sounds are positive. Abdomen is soft, nontender, and nondistended. Extremities: No rash, lesions, or edema. No restriction of range of motion NEUROLOGICAL EXAMINATION: Awake. Not oriented to time, place but knew person. PERRL. EOMI. CN: no focal findings. Muscle tone: within normal. Muscle strength: 5- DTR: 2- Plantar reflex: Neutral response bilaterally Gait: not examined in chair. Sensory exam: no abnormal findings. No cerebellar signs elicited. F-T-N test fine. Objective Objective Vital Signs Date Time Temp Pulse Resp B/P (MAP) Pulse Ox O2 Delivery O2 Flow Rate FiO2 05/02/19 11:00 97.6 60 20 124/44 (70) 94 Room Air 97.6 Intake and Output 05/03/19 06:59 Intake Total 220 ml Balance 220 ml Intake Oral 220 ml # Voids 1 Vitals Signs Vitals VS - Last 72 Hours, by Label Date Time Temp Pulse Resp B/P (MAP) Pulse Ox O2 Delivery O2 Flow Rate FiO2 05/02/19 11:00 97.6 60 20 124/44 (70) 94 Room Air 97.6 05/02/19 08:15 Room Air 05/02/19 08:12 57 134/51 05/02/19 08:12 57 134/51 05/02/19 07:00 98.1 18 18 134/51 (78) 92 Room Air 98.1 Comment Review of Relevant I have reviewed the following items marizol (where applicable) has been applied. TY MCKEON MD May 03, 2019 17:09
== END 2019-05-02 14:04 | DRG 689 ==
LOC: ER 12:34 → 5 NORTH 14:07
PROVIDERS: ADMIT Internal Medicine; ATTEND Internal Medicine
DX: N39.0 Urinary tract infection, site not specified (principal); G92 Toxic encephalopathy; R47.01 Aphasia; D64.9 Anemia, unspecified; E11.9 Type 2 diabetes mellitus without complications; E66.9 Obesity, unspecified; E86.0 Dehydration; F03.90 Unspecified dementia, unspecified severity, without behavioral disturbance, psychotic disturbance, mood disturbance, and anxiety; I10 Essential (primary) hypertension; R29.6 Repeated falls; Z79.82 Long term (current) use of aspirin; Z87.440 Personal history of urinary (tract) infections; Z90.710 Acquired absence of both cervix and uterus; Z95.5 Presence of coronary angioplasty implant and graft; W18.39XA Other fall on same level, initial encounter; Y93.89 Activity, other specified; Y92.89 Other specified places as the place of occurrence of the external cause; Y99.8 Other external cause status
CPT/HCPCS: 36415; 70450; 70551; 71045; 72125; 73562; 80048; 80053; 81001; 82553; 82607; 82962; 83735; 83880; 84443; 84484; 85025; 93005; 95816; 96361; 96365; J1644; J1815; J3475; J7030; 97535; 99285-25; G0378